=== PATIENT | female | born 1940 | race Caucasian/White ===

== ENCOUNTER 2017-08-14 01:02 | Inpatient (IN) | payer MEDICARE ==
[2017-08-14] MEDS ORDERED: Albuterol/Ipratropium NEB.SOL* Albuterol 2.5 MG/Ipratropium 0.5 MG 3 ML INH ONE (01:32)
[2017-08-14] MEDS ORDERED: methylPREDNISolone 125 MG* 2 ML VIAL IV ONE (01:32)
[2017-08-14 02:06] LABS: Hematocrit 34 % (35-47); Hemoglobin 10.5 g/dl (12.0-16.0); Mean Corpuscular HGB Conc 31 g/dl (31-36); Mean Corpuscular Hemoglobin 27 pg (27-31); Mean Corpuscular Volume 87 fL (80-97); Mean Platelet Volume 6 um3 (7.4-10.4); Red Blood Count 3.85 10^6/ul (4.0-5.4); Red Cell Distribution Width 15 % (10.5-15); White Blood Count 10.1 10^3/ul (3.5-10.8)
[2017-08-14 02:19] LABS: Albumin 3.2 g/dL (3.2-5.2); BUN/Creatinine Ratio 22.9 (8-20); Calcium 9.1 mg/dL (8.6-10.3); EGFR African American 72.5 (>60); EGFR Non-African American 56.4 (>60); Globulin 4.2 g/dL (2-4); Potassium 3.8 mmol/L (3.5-5.0); Total Bilirubin 0.2 mg/dL (0.2-1.0); Total Protein 7.4 g/dL (6.4-8.9)
[2017-08-14 02:21] LABS: Troponin I 0.01 ng/mL (<0.04)
[2017-08-14 02:48] LABS: PCO2 Arterial 66 mmHg (35-45)
[2017-08-14 02:49] LABS: FIO2 32
[2017-08-14] MEDS ORDERED: Acetaminophen TAB* 325 MG PO PRN (03:51)
[2017-08-14] MEDS ORDERED: NS 0.9% 1000 ML* 1,000 ML IV SCH (04:00)
--- NOTE | 2017-08-14 04:06 | ED ---
Michael Field Jason, scribed for Nelson Ingram on 08/14/17 at 0136 . Shortness of Breath - HPI Summary HPI Summary: This patient is a 77 year old F presenting to [facility] accompanied by son with a chief complaint of SOB since two days ago. The patients son states the patient s speech has changed to a type of slur as if shes drunk today. The patient is currently being treated for a "bacterial infection in the lungs", and started abx yesterday but has not improved. Additionally, the patient has been using oxygen at home for the past month. The patient rates the pain 0/10 in severity. Symptoms aggravated by nothing. Symptoms alleviated by nothing. - History of Current Complaint Chief Complaint: EDGeneral Time Seen by Provider: 08/14/17 01:23 Hx Obtained From: Patient Onset/Duration: Gradual Onset, Lasting Days - 2 days, Still Present Timing: Constant Aggrevating Factors: Nothing Alleviating Factors: Oxygen - Allergy/Home Medications Allergies/Adverse Reactions: Allergies Allergy/AdvReac Type Severity Reaction Status Date / Time Aspirin [ASA] Allergy See Comment Verified 08/14/17 01:22 PMH/Surg Hx/FS Hx/Imm Hx Previously Healthy: No Endocrine/Hematology History: Denies: Hx Diabetes, Hx Systemic Lupus Erythematosus Cardiovascular History: Reports: Hx Hypertension Denies: Hx Congestive Heart Failure History: Denies: Hx Dialysis, Hx Renal Disease Musculoskeletal History: Denies: Hx Rheumatoid Arthritis, Hx Osteoporosis - Cancer History Cancer Type, Location and Year: LEFT BREAST CA Hx Chemotherapy: No Hx Radiation Therapy: Yes - Aug and Sep 2015 - Surgical History Surgery Procedure, Year, and Place: BILATERAL HIP REPLACEMENTS, LUMPECTOMY - Immunization History Date of Tetanus Vaccine: utd Date of Influenza Vaccine: utd Infectious Disease History: No Infectious Disease History: Denies: Traveled Outside the [place] in Last 30 Days - Family History Known Family History: Negative: Cardiac Disease, Hypertension, Diabetes - Social History Alcohol Use: Rare Substance Use Type: Reports: None Smoking Status (MU): Former Smoker Length of Time of Smoking/Using Tobacco: 55 yrs Have You Smoked in the Last Year: Yes Review of Systems Positive: Shortness Of Breath Positive: Slurred Speech All Other Systems Reviewed And Are Negative: Yes Physical Exam - Summary Physical Exam Summary: Appearance: Well appearing, no pain distress Skin: warm, dry, reflects adequate perfusion Head/face: normal Eyes: EOMI, KYAW ENT: normal Neck: supple, non-tender Respiratory:, bilateral wheezing Cardiovascular: RRR, pulses symmetrical Abdomen: non-tender, soft Bowel: present Musculoskeletal: normal, strength/ROM intact Neuro: normal, sensory motor intact, A&Ox3 Triage Information Reviewed: Yes Vital Signs On Initial Exam: Initial Vitals Temp Pulse Resp BP Pulse Ox 97.4 F 81 14 152/80 94 08/14/17 01:05 08/14/17 01:05 08/14/17 01:05 08/14/17 01:05 08/14/17 01:05 Vital Signs Reviewed: Yes - [place] Coma Scale Coma Scale Total: 15 Diagnostics - Vital Signs Vital Signs Temp Pulse Resp BP Pulse Ox 08/14/17 01:05 97.4 F 81 14 152/80 94 - Laboratory Lab Results: Lab Results 08/14/17 08/14/17 08/14/17 Range/Units 01:46 01:46 01:46 WBC 10.1 (3.5-10.8) 10^3/ul RBC 3.85 L (4.0-5.4) 10^6/ul Hgb 10.5 L (12.0-16.0) g/dl Hct 34 L (35-47) % MCV 87 (80-97) fL MCH 27 (27-31) pg MCHC 31 (31-36) g/dl RDW 15 (10.5-15) % Plt Count 637 H (150-450) 10^3/ul MPV 6 L (7.4-10.4) um3 Neut % (Auto) 85.6 H (38-83) % Lymph % (Auto) 6.1 L (25-47) % Beauregard % (Auto) 5.9 (1-9) % Eos % (Auto) 1.7 (0-6) % Baso % (Auto) 0.7 (0-2) % Absolute Neuts (auto) 8.6 H (1.5-7.7) 10^3/ul Absolute Lymphs (auto) 0.6 L (1.0-4.8) 10^3/ul Absolute Monos (auto) 0.6 (0-0.8) 10^3/ul Absolute Eos (auto) 0.2 (0-0.6) 10^3/ul Absolute Basos (auto) 0.1 (0-0.2) 10^3/ul Absolute Nucleated RBC 0 10^3/ul Nucleated RBC % 0 INR (Anticoag Therapy) 1.32 H (0.77-1.02) APTT 38.5 H (26.0-36.3) seconds Patient Temperature ABG pH (7.35-7.45) ABG pCO2 (35-45) mmHg ABG pO2 (80-100) mmHg ABG HCO3 (19-31) mmol/L ABG O2 Saturation (95-98) % ABG Base Excess (-2.0-2.0) Respiration Rate O2 Delivery Device Ventilator Type Vent Mode FiO2 Inspiratory Time PEEP Pressure Support Pressure Control EPAP IPAP BiPAP Sodium (133-145) mmol/L Potassium (3.5-5.0) mmol/L Chloride (101-111) mmol/L Carbon Dioxide (22-32) mmol/L Anion Gap (2-11) mmol/L BUN (6-24) mg/dL Creatinine (0.51-0.95) mg/dL Est GFR ( Amer) (>60) Est GFR (Non-Af Amer) (>60) BUN/Creatinine Ratio (8-20) Glucose (70-100) mg/dL Lactic Acid (0.5-2.0) mmol/L Calcium (8.6-10.3) mg/dL Total Bilirubin (0.2-1.0) mg/dL AST (13-39) U/L ALT (7-52) U/L Alkaline Phosphatase (34-104) U/L Troponin I (<0.04) ng/mL B-Natriuretic Peptide 437 H ( - 100) pg/mL Total Protein (6.4-8.9) g/dL Albumin (3.2-5.2) g/dL Globulin (2-4) g/dL Albumin/Globulin Ratio (1-3) 08/14/17 08/14/17 08/14/17 Range/Units 01:46 01:46 02:35 WBC (3.5-10.8) 10^3/ul RBC (4.0-5.4) 10^6/ul Hgb (12.0-16.0) g/dl Hct (35-47) % MCV (80-97) fL MCH (27-31) pg MCHC (31-36) g/dl RDW (10.5-15) % Plt Count (150-450) 10^3/ul MPV (7.4-10.4) um3 Neut % (Auto) (38-83) % Lymph % (Auto) (25-47) % Beauregard % (Auto) (1-9) % Eos % (Auto) (0-6) % Baso % (Auto) (0-2) % Absolute Neuts (auto) (1.5-7.7) 10^3/ul Absolute Lymphs (auto) (1.0-4.8) 10^3/ul Absolute Monos (auto) (0-0.8) 10^3/ul Absolute Eos (auto) (0-0.6) 10^3/ul Absolute Basos (auto) (0-0.2) 10^3/ul Absolute Nucleated RBC 10^3/ul Nucleated RBC % INR (Anticoag Therapy) (0.77-1.02) APTT (26.0-36.3) seconds Patient Temperature Not Reportable ABG pH 7.38 (7.35-7.45) ABG pCO2 66 H (35-45) mmHg ABG pO2 62 L (80-100) mmHg ABG HCO3 33.9 H (19-31) mmol/L ABG O2 Saturation 93.2 L (95-98) % ABG Base Excess 11.7 H (-2.0-2.0) Respiration Rate Not Reportable O2 Delivery Device nasal cannila Ventilator Type Not Reportable Vent Mode Not Reportable FiO2 32 Inspiratory Time Not Reportable PEEP Not Reportable Pressure Support Not Reportable Pressure Control Not Reportable EPAP Not Reportable IPAP Not Reportable BiPAP Not Reportable Sodium 137 (133-145) mmol/L Potassium 3.8 (3.5-5.0) mmol/L Chloride 95 L (101-111) mmol/L Carbon Dioxide 38 H (22-32) mmol/L Anion Gap 4 (2-11) mmol/L BUN 22 (6-24) mg/dL Creatinine 0.96 H (0.51-0.95) mg/dL Est GFR ( Amer) 72.5 (>60) Est GFR (Non-Af Amer) 56.4 (>60) BUN/Creatinine Ratio 22.9 H (8-20) Glucose 133 H (70-100) mg/dL Lactic Acid 1.1 (0.5-2.0) mmol/L Calcium 9.1 (8.6-10.3) mg/dL Total Bilirubin 0.20 (0.2-1.0) mg/dL AST 11 L (13-39) U/L ALT 7 (7-52) U/L Alkaline Phosphatase 43 (34-104) U/L Troponin I 0.01 (<0.04) ng/mL B-Natriuretic Peptide ( - 100) pg/mL Total Protein 7.4 (6.4-8.9) g/dL Albumin 3.2 (3.2-5.2) g/dL Globulin 4.2 H (2-4) g/dL Albumin/Globulin Ratio 0.8 L (1-3) Result Diagrams: 08/14/17 01:46 08/14/17 01:46 Lab Statement: Any lab studies that have been ordered have been reviewed, and results considered in the medical decision making process. - Radiology CXR Radiology Interpretation Completed By: ED Physician - CXR reveals emphysema changes. ED physician has reviewed this radiology report. Course/Dx - Course Course Of Treatment: This patient is a 77 year old F presenting to [facility] accompanied by son with a chief complaint of SOB since two days ago. Bloodwork/ UA obtained. In the ED course the patient was given oxygen, albuterol and IV fluids. CXR reveals emphysema changes. We discussed patient care with Dr. Gardner and they recommended admission. The patient is agreeable with this plan. Dx of Exacerbation of COPD. - Diagnoses Provider Diagnoses: COPD exacerbation Discharge - Discharge Plan Condition: Stable Disposition: ADMITTED TO [facility] Referrals: Stu Hand, [employer] [Primary Care Provider] - The documentation as recorded by the Michael almazan Jason accurately reflects the service I personally performed and the decisions made by Nataly padgett Emmanuel.
[2017-08-14] MEDS ORDERED: AZITHROMYCIN IVPB ONE ×2 (05:00)
[2017-08-14] MEDS ORDERED: [UNRECOGNIZED DRUG - OTHER] IVPB ONE ×2 (05:00)
[2017-08-14 06:46] LABS: Urine Bacteria 1+ (Absent); Urine Bilirubin Negative (Negative); Urine Glucose Negative (Negative); Urine Nitrite Negative (Negative)
[2017-08-14] MEDS ORDERED: Albuterol 2.5 MG/3 ML NEB.SOL* (0.083%) INH SCH (07:00)
[2017-08-14] MEDS: Metoprolol Succinate XL TAB* 50 MG PO SCH (07:55)
[2017-08-14] MEDS: Atorvastatin* 10 MG TAB PO SCH (07:55)
[2017-08-14] MEDS: amLODIPine TAB* 5 MG PO SCH (07:55)
[2017-08-14] MEDS: Docusate CAP* 100 MG PO SCH ×2 (07:56→21:42)
[2017-08-14] MEDS: Rivaroxaban TAB(*) 20 MG TAB PO SCH (07:56)
--- NOTE | 2017-08-14 08:04 | HP ---
ADDENDUM NOW INCLUDED ON THIS REPORT CC: Dr. Denis; Dr. Goodson; Dr. Patel * HISTORY AND PHYSICAL: DATE OF ADMISSION: 08/14/17 PRIMARY CARE PROVIDER: Dr. Denis. CHIEF COMPLAINT: Shortness of breath. HISTORY OF PRESENT ILLNESS: Karyn Breen is a 77-year-old female with history of COPD, oxygen dependent, who was seen by Dr. Goodson on 08/12/17 and prescribed Bactrim and prednisone for upper respiratory infection and COPD exacerbation. The patient stated that despite using the medication for 24 hours she still continues to feel poorly. The patient's son brought the patient to the hospital due to patient's speech being somewhat "gurgly." The patient in fact appears very dehydrated, has a very dry mouth, and speaking appears to be problematic due to that. The patient's workup otherwise is unremarkable. She came in with a portable oxygen bottle that was empty, hypoxemic, but once she was placed on 3 L of oxygen nasal cannula her oxygen saturation was 96. Nevertheless, the patient appears very dehydrated and weak. She is going to be placed on overnight observation with a diagnosis of dehydration, COPD exacerbation. PAST MEDICAL HISTORY: 1. History of atrial fibrillation, on Xarelto. 2. History of chronic hypoxemia due to COPD, on oxygen at 2 L. 3. History of dyslipidemia. 4. History of lumbar spine scoliosis. 5. Peripheral arterial occlusive disease. 6. History of hypertension. 7. Osteoporosis. 8. 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 9. History of hip replacement, bilaterally, in 2010. 10. History of COPD which is severe with DLCO of 36%. 11. Patient's echocardiogram obtained in June 2017 showed mild concentric LVH, mild global hypokinesis of left ventricle, EF of 45%, and RV volume of pressure overload. There was mild aortic stenosis and moderate mitral regurgitation, although there is [id number] tricuspid regurgitation. CURRENT MEDICATIONS: Include: 1. Bactrim DS 1 tablet b.i.d. started on 08/13/17. 2. On oxygen 2 L continuously. 3. Xarelto 20 mg daily. 4. Metoprolol succinate 50 mg daily. 5. Amlodipine 5 mg daily. 6. Fortical 1 spray once daily alternate nostrils. 7. Nebulizer for DuoNeb treatment on a p.r.n. basis. 8. Advair Diskus 250/50 one inhalation b.i.d. 9. Lipitor 40 mg daily. 10. Tamoxifen 20 mg daily. 11. Albuterol inhaler on a p.r.n. basis. ALLERGIES: Include ASPIRIN. FAMILY HISTORY: Father with history of lung cancer. Mother with history of CVA , at the age of 91. Brother with COPD. SOCIAL HISTORY: The patient is a . Lives alone in a rented apartment. She has a history of 50-pack year smoking, quit in March 2017. She consumes alcohol rarely. Denies any drug use. Her healthcare proxy is her son, Casimiro Breen. REVIEW OF SYSTEMS: Rather limited from the patient. She complains of feeling poorly for the past month and half. She had been on multiple antibiotics. On this, in the medical records I saw that patient was on ciprofloxacin, amoxicillin, and now on Bactrim. She had been off and on tapers of steroids. The patient stated that her appetite had been poor and she had been very weak. She usually ambulates with a roller walker, but that has been problematic for her. All the remaining 12 systems were reviewed with the patient and were otherwise negative. PHYSICAL EXAMINATION GENERAL: The patient is a very pleasant 77-year-old female whose BMI is 18.9. The patient is in no acute distress. She is alert and oriented x3, but a rather poor historian. VITAL SIGNS: Blood pressure 141/93, heart rate of 80 and regular, respiratory rate of 25, oxygen saturation 100% on 3 L oxygen nasal cannula, temperature 97.4. HEENT: Head: Atraumatic, normocephalic. Eyes: Pupils are equal, reactive to light and accommodation. Oropharynx clear. Mucosa dry. NECK: Supple. No JVD, no bruits bilaterally. RESPIRATORY: Rhonchi at bilateral basis and mid lung wheezes. CARDIOVASCULAR: Regular rate and rhythm. No murmurs. ABDOMEN: Soft and nontender. Bowel sounds are present in all 4 quadrants. EXTREMITIES: There is no edema. Pulses are 2+ bilaterally. There is no clubbing or cyanosis. NEURO EVALUATION: Speech clear. Cranial nerves II through XII are grossly intact. Motor strength is 5/5 bilaterally. LABORATORY DATA: Shows white blood cell count of 10.1, hemoglobin of 10.5, hematocrit of 34, and platelets of 637. ABG shows pH of 7.38, pCO2 of 66, pO2 of 62, bicarb of 33. Sodium was 137, potassium 3.8, chloride 95, carbon dioxide 38, BUN 22, creatinine 0.96. Liver function tests were unremarkable. Brain natriuretic peptide was 437, troponin of 0.01. Lactic acid of 1.1. Portable chest x-ray reviewed by myself showed no infiltrates. The official radiologist report is still pending at the time of dictation. The patient's EKG showed AFib/flutter with a heart rate of 79 beats per minute with criteria for LVH. ASSESSMENT AND PLAN: 1. In regards to patient's chronic obstructive pulmonary disease exacerbation, the patient is going to be placed on Solu-Medrol. I also start the patient on azithromycin and continue supplementation with oxygen. The patient is also going to be placed on scheduled nebulizers. 2. In regards to patient's chronic atrial fibrillation, Xarelto is going to be continued, as well as metoprolol. 3. For her hypertension, amlodipine is going to be continued. 4. For DVT prophylaxis, the patient is going to be placed on heparin subcutaneously. 5. Code status is full and her surrogate is her son as mentioned above. TIME SEEN: Approximately 65 minutes was spent on admission of this patient, more than half the time was spent [id number] with the patient doing the interview and physical exam. ADDENDUM: Please note that the patient, in fact, does not have an allergy to aspirin, but she was told not to use aspirin when she is on Xarelto. Please also note that the patient due to being on Xarelto, the patient does not need to be on DVT prophylaxis with heparin, but she is going to be continued on Xarelto. [id number]/CPS #: [id number]/CPS #: [id number] KENAN
--- NOTE | 2017-08-14 08:04 | HP ---
HISTORY AND PHYSICAL: * ADDENDUM: Please note that the patient in fact does not have an allergy to aspirin, but she was told not to use aspirin when she is on Xarelto. Please also note that the patient due to being on Xarelto, the patient does not need to be on DVT prophylaxis with heparin, but she is going to be continued on Xarelto. [id number]/[facility] #: [id number] MTDClarisa
--- NOTE | 2017-08-14 08:10 | RAD ---
HISTORY: Shortness of breath COMPARISONS: July 08, 2017 VIEWS: 1: frontal portable view of the chest at 1:50 AM FINDINGS: LINES AND TUBES: None. CARDIOMEDIASTINAL SILHOUETTE: The cardiomediastinal silhouette is stable. PLEURA: The costophrenic angles are sharp. No pleural abnormalities are noted. LUNG PARENCHYMA: There is hyperinflation. ABDOMEN: The upper abdomen is clear. There is no subphrenic gas. BONES AND SOFT TISSUES: No bone or soft tissue abnormalities are noted. IMPRESSION: HYPERINFLATION. NO ACTIVE CARDIOPULMONARY DISEASE.
--- NOTE | 2017-08-14 08:11 | RAD ---
HISTORY: Dizziness COMPARISONS: None TECHNIQUE: Multiple contiguous axial CT scans were obtained of the head without intravenous contrast. FINDINGS: HEMORRHAGE/INFARCT: There is no hemorrhage or acute infarct. MASSES/SHIFT: There is no mass or shift. EXTRA-AXIAL SPACES: There are no extra-axial fluid collections. SULCI AND VENTRICLES: The sulci and ventricles are normal in size and position for the patient's stated age. CEREBRUM: There is hypoattenuation of the periventricular and subcortical white matter. There are chronic lacunar infarcts of the basal ganglia bilaterally. BRAINSTEM: There are no focal parenchymal abnormalities. CEREBELLUM: There are no focal parenchymal abnormalities. VESSELS: There is calcification of the cavernous segments of the internal carotid arteries bilaterally. PARANASAL SINUSES: The paranasal sinuses are clear. ORBITS: The orbits are unremarkable. BONES AND SOFT TISSUE: No bone or soft tissue abnormalities are noted. OTHER: None IMPRESSION: NO ACUTE INTRACRANIAL PATHOLOGY. CHRONIC SMALL VESSEL ISCHEMIC CHANGES.
[2017-08-14] MEDS ORDERED: Albuterol 2.5 MG/3 ML NEB.SOL* (0.083%) INH PRN ×2 (08:40→18:09)
[2017-08-14] MEDS ORDERED: Albuterol HFA INHALER* 8 gm MDI INH SCH (09:00)
[2017-08-14] MEDS: Mometasone/Formoter 200/5 MDI INH SCH ×2 (11:11→20:15)
[2017-08-14] MEDS: methylPREDNISolone SOD 40 MG* 1 ML VIAL IV SCH ×2 (11:29→17:41)
[2017-08-14] MEDS: Tamoxifen TAB* 10 MG PO SCH (16:53)
[2017-08-14] MEDS: Metoprolol Succinate XL TAB* 25 MG PO SCH (17:41)
--- NOTE | 2017-08-14 18:19 | PN ---
Subjective Date of Service: 08/14/17 Interval History: Patient seen and examined. Appears to have increased WOB and cough with significant sputum production. Denies chest pain, denies headache or dizziness. No n/v, no urinary complains. Family at bedside. Objective Active Medications: Acetaminophen (Tylenol Tab*) 650 mg PO Q4H PRN PRN Reason: FEVER/PAIN Albuterol (Ventolin 2.5 Mg/3 Ml Neb.Edwina*) 2.5 mg INH Q4H PRN PRN Reason: SOB/WHEEZING Albuterol/Ipratropium (Duoneb (Albuterol 2.5 Mg/Ipratropium 0.5 Mg)) 1 neb INH Q6H FRANCI Amlodipine Besylate (Norvasc Tab*) 5 mg PO DAILY [facility] Last Admin: 08/14/17 07:55 Dose: 5 mg Atorvastatin Calcium (Lipitor*) 10 mg PO DAILY [facility] Last Admin: 08/14/17 07:55 Dose: 10 mg Docusate Sodium (Colace Cap*) 100 mg PO BID [facility] Last Admin: 08/14/17 07:56 Dose: Not Given Guaifenesin (Mucinex*) 600 mg PO BID [facility] Azithromycin 500 mg/ Sodium (Chloride) 250 mls @ 250 mls/hr IVPB Q24H [facility] Methylprednisolone Sodium Succinate (Solu-Medrol 40 Mg) 40 mg IV Q8H [facility] Last Admin: 08/14/17 17:41 Dose: 40 mg Metoprolol Succinate (Toprol Xl Tab*) 25 mg PO QPM [facility] Last Admin: 08/14/17 17:41 Dose: 25 mg Metoprolol Succinate (Toprol Xl Tab*) 50 mg PO QAM [facility] Last Admin: 08/14/17 07:55 Dose: 50 mg Mometasone Furoate/Formoterol Fumar (Dulera 200/5 Mdi*) 2 puff INH BID [facility] Last Admin: 08/14/17 11:11 Dose: Not Given Rivaroxaban (Xarelto (*)) 20 mg PO DAILY [facility] Last Admin: 08/14/17 07:56 Dose: 20 mg Tamoxifen Citrate (Nolvadex*) 20 mg PO DAILY [facility] Last Admin: 08/14/17 16:53 Dose: Not Given Vital Signs - 8 hr 08/14/17 15:37 Temperature 98.2 F Pulse Rate 84 Respiratory 26 Rate Blood Pressure 130/70 (mmHg) O2 Sat by Pulse 90 Oximetry Oxygen Devices in Use Now: Nasal Cannula Appearance: Labored, mild distress Eyes: No Scleral Icterus, PERRLA Ears/Nose/Mouth/Throat: NL Teeth, Lips, Gums, Mucous Membranes Moist Neck: Trachea Midline Respiratory: - - Increased accessory muscle use, rhonchorous, expiratory wheeze bilaterally Cardiovascular: RRR - grade II/ murmur, No Edema Abdominal: NL Sounds; No Tenderness; No Distention Extremities: No Edema, No Clubbing, Cyanosis Skin: No Rash or Ulcers Neurological: Alert and Oriented x 3, NL Sensation Nutrition: Taking PO's Result Diagrams: 08/14/17 01:46 08/14/17 01:46 Additional Lab and Data: Lab Results 08/14/17 08/14/17 08/14/17 Range/Units 01:46 01:46 01:46 WBC 10.1 (3.5-10.8) 10^3/ul RBC 3.85 L (4.0-5.4) 10^6/ul Hgb 10.5 L (12.0-16.0) g/dl Hct 34 L (35-47) % MCV 87 (80-97) fL MCH 27 (27-31) pg MCHC 31 (31-36) g/dl RDW 15 (10.5-15) % Plt Count 637 H (150-450) 10^3/ul MPV 6 L (7.4-10.4) um3 Neut % (Auto) 85.6 H (38-83) % Lymph % (Auto) 6.1 L (25-47) % Ashley % (Auto) 5.9 (1-9) % Eos % (Auto) 1.7 (0-6) % Baso % (Auto) 0.7 (0-2) % Absolute Neuts (auto) 8.6 H (1.5-7.7) 10^3/ul Absolute Lymphs (auto) 0.6 L (1.0-4.8) 10^3/ul Absolute Monos (auto) 0.6 (0-0.8) 10^3/ul Absolute Eos (auto) 0.2 (0-0.6) 10^3/ul Absolute Basos (auto) 0.1 (0-0.2) 10^3/ul Absolute Nucleated RBC 0 10^3/ul Nucleated RBC % 0 INR (Anticoag Therapy) 1.32 H (0.77-1.02) APTT 38.5 H (26.0-36.3) seconds Patient Temperature ABG pH (7.35-7.45) ABG pCO2 (35-45) mmHg ABG pO2 (80-100) mmHg ABG HCO3 (19-31) mmol/L ABG O2 Saturation (95-98) % ABG Base Excess (-2.0-2.0) Respiration Rate O2 Delivery Device Ventilator Type Vent Mode FiO2 Inspiratory Time PEEP Pressure Support Pressure Control EPAP IPAP BiPAP Sodium (133-145) mmol/L Potassium (3.5-5.0) mmol/L Chloride (101-111) mmol/L Carbon Dioxide (22-32) mmol/L Anion Gap (2-11) mmol/L BUN (6-24) mg/dL Creatinine (0.51-0.95) mg/dL Est GFR ( Amer) (>60) Est GFR (Non-Af Amer) (>60) BUN/Creatinine Ratio (8-20) Glucose (70-100) mg/dL Lactic Acid (0.5-2.0) mmol/L Calcium (8.6-10.3) mg/dL Total Bilirubin (0.2-1.0) mg/dL AST (13-39) U/L ALT (7-52) U/L Alkaline Phosphatase (34-104) U/L Troponin I (<0.04) ng/mL B-Natriuretic Peptide 437 H ( - 100) pg/mL Total Protein (6.4-8.9) g/dL Albumin (3.2-5.2) g/dL Globulin (2-4) g/dL Albumin/Globulin Ratio (1-3) 08/14/17 08/14/17 08/14/17 Range/Units 01:46 01:46 02:35 WBC (3.5-10.8) 10^3/ul RBC (4.0-5.4) 10^6/ul Hgb (12.0-16.0) g/dl Hct (35-47) % MCV (80-97) fL MCH (27-31) pg MCHC (31-36) g/dl RDW (10.5-15) % Plt Count (150-450) 10^3/ul MPV (7.4-10.4) um3 Neut % (Auto) (38-83) % Lymph % (Auto) (25-47) % Ashley % (Auto) (1-9) % Eos % (Auto) (0-6) % Baso % (Auto) (0-2) % Absolute Neuts (auto) (1.5-7.7) 10^3/ul Absolute Lymphs (auto) (1.0-4.8) 10^3/ul Absolute Monos (auto) (0-0.8) 10^3/ul Absolute Eos (auto) (0-0.6) 10^3/ul Absolute Basos (auto) (0-0.2) 10^3/ul Absolute Nucleated RBC 10^3/ul Nucleated RBC % INR (Anticoag Therapy) (0.77-1.02) APTT (26.0-36.3) seconds Patient Temperature Not Reportable ABG pH 7.38 (7.35-7.45) ABG pCO2 66 H (35-45) mmHg ABG pO2 62 L (80-100) mmHg ABG HCO3 33.9 H (19-31) mmol/L ABG O2 Saturation 93.2 L (95-98) % ABG Base Excess 11.7 H (-2.0-2.0) Respiration Rate Not Reportable O2 Delivery Device nasal cannila Ventilator Type Not Reportable Vent Mode Not Reportable FiO2 32 Inspiratory Time Not Reportable PEEP Not Reportable Pressure Support Not Reportable Pressure Control Not Reportable EPAP Not Reportable IPAP Not Reportable BiPAP Not Reportable Sodium 137 (133-145) mmol/L Potassium 3.8 (3.5-5.0) mmol/L Chloride 95 L (101-111) mmol/L Carbon Dioxide 38 H (22-32) mmol/L Anion Gap 4 (2-11) mmol/L BUN 22 (6-24) mg/dL Creatinine 0.96 H (0.51-0.95) mg/dL Est GFR ( Amer) 72.5 (>60) Est GFR (Non-Af Amer) 56.4 (>60) BUN/Creatinine Ratio 22.9 H (8-20) Glucose 133 H (70-100) mg/dL Lactic Acid 1.1 (0.5-2.0) mmol/L Calcium 9.1 (8.6-10.3) mg/dL Total Bilirubin 0.20 (0.2-1.0) mg/dL AST 11 L (13-39) U/L ALT 7 (7-52) U/L Alkaline Phosphatase 43 (34-104) U/L Troponin I 0.01 (<0.04) ng/mL B-Natriuretic Peptide ( - 100) pg/mL Total Protein 7.4 (6.4-8.9) g/dL Albumin 3.2 (3.2-5.2) g/dL Globulin 4.2 H (2-4) g/dL Albumin/Globulin Ratio 0.8 L (1-3) Diagnostic Imaging: MRI brain with no acute pathology CXR with no infiltrate, shows emphysematous changes Assess/Plan/Problems-Billing Assessment: This is a 77 year old female patient with 4 year hx of COPD in an acute exacerbation requiring inpatient IV steroids, antibiotics and nebulizer treatment. - Patient Problems (1) COPD exacerbation Code(s): J44.1 - CHRONIC OBSTRUCTIVE PULMONARY DISEASE W (ACUTE) EXACERBATION SNOMED Code(s): 099201008804816 Comment: - Continue azythromycin 500 daily - Change to duonebs Q6H with albuterol Q4PRN - Add mucinex 600 BID - Continue solumedrol 40mg Q8h for now - Continue O2 2LPM - Will consult Dr. Goodson in the AM, as she sees her as an outpatient (2) Hypertension Code(s): I10 - ESSENTIAL (PRIMARY) HYPERTENSION SNOMED Code(s): 13266171 Comment: - Continue amlodipine and toprol (3) Breast cancer Code(s): C50.919 - MALIGNANT NEOPLASM OF UNSP SITE OF UNSPECIFIED FEMALE BREAST SNOMED Code(s): 686316378 Comment: - status post lumpectomy on tamoxifan (4) Paroxysmal A-fib Code(s): I48.0 - PAROXYSMAL ATRIAL FIBRILLATION SNOMED Code(s): 512941887 Comment: - Continue xarelto and toprol XL (5) Hyperlipidemia Code(s): E78.5 - HYPERLIPIDEMIA, UNSPECIFIED SNOMED Code(s): 95858740 Comment: - Continue statin Status and Disposition: Remain inpatient for stabilization. Counseling and/or Coordination of Care Minutes: Coordinated with patient, family and primary RN.
[2017-08-14] MEDS: Albuterol/Ipratropium NEB.SOL* Albuterol 2.5 MG/Ipratropium 0.5 MG 3 ML INH SCH (20:18)
[2017-08-14] MEDS: guaiFENesin ER TAB 600 MG PO SCH (21:42)
[2017-08-15] MEDS: Albuterol/Ipratropium NEB.SOL* Albuterol 2.5 MG/Ipratropium 0.5 MG 3 ML INH SCH ×4 (01:15→21:22)
[2017-08-15] MEDS: methylPREDNISolone SOD 40 MG* 1 ML VIAL IV SCH ×3 (02:36→18:35)
[2017-08-15] MEDS: Azithromycin IV(*) 500 MG in NS 0.9% 250 ML* 250 ML IVPB SCH (04:34)
[2017-08-15] MEDS: amLODIPine TAB* 5 MG PO SCH (07:37)
[2017-08-15] MEDS: Atorvastatin* 10 MG TAB PO SCH (07:37)
[2017-08-15] MEDS: guaiFENesin ER TAB 600 MG PO SCH ×2 (07:37→22:08)
[2017-08-15] MEDS: Rivaroxaban TAB(*) 20 MG TAB PO SCH (07:37)
[2017-08-15] MEDS: Metoprolol Succinate XL TAB* 50 MG PO SCH (07:37)
[2017-08-15] MEDS: Tamoxifen TAB* 10 MG PO SCH (07:37)
[2017-08-15] MEDS: Docusate CAP* 100 MG PO SCH ×4 (07:37→22:10)
[2017-08-15 07:39] LABS: Calcium 8.8 mg/dL (8.6-10.3); EGFR African American 93.5 (>60); EGFR Non-African American 72.7 (>60)
[2017-08-15 07:44] LABS: Hematocrit 33 % (35-47); Hemoglobin 10.2 g/dl (12.0-16.0); Mean Corpuscular HGB Conc 31 g/dl (31-36); Mean Corpuscular Hemoglobin 27 pg (27-31); Mean Corpuscular Volume 86 fL (80-97); Mean Platelet Volume 7 um3 (7.4-10.4); Red Blood Count 3.82 10^6/ul (4.0-5.4); Red Cell Distribution Width 15 % (10.5-15); White Blood Count 15.1 10^3/ul (3.5-10.8)
[2017-08-15] MEDS: Mometasone/Formoter 200/5 MDI INH SCH ×2 (07:57→21:19)
[2017-08-15] MEDS: Metoprolol Succinate XL TAB* 25 MG PO SCH (18:35)
--- NOTE | 2017-08-15 19:15 | PN ---
Subjective Date of Service: 08/15/17 Interval History: Patient seen and examined. Breathing with some improvement, still SOB with ambulation. Still with cough and sputum production. No chest pain, no dizziness. No further complaints. Objective Active Medications: Acetaminophen (Tylenol Tab*) 650 mg PO Q4H PRN PRN Reason: FEVER/PAIN Albuterol (Ventolin 2.5 Mg/3 Ml Neb.Edwina*) 2.5 mg INH Q4H PRN PRN Reason: SOB/WHEEZING Albuterol/Ipratropium (Duoneb (Albuterol 2.5 Mg/Ipratropium 0.5 Mg)) 1 neb INH Q6H [facility] Last Admin: 08/15/17 13:38 Dose: 1 neb Amlodipine Besylate (Norvasc Tab*) 5 mg PO DAILY [facility] Last Admin: 08/15/17 07:37 Dose: 5 mg Atorvastatin Calcium (Lipitor*) 10 mg PO DAILY [facility] Last Admin: 08/15/17 07:37 Dose: 10 mg Docusate Sodium (Colace Cap*) 100 mg PO BID [facility] Last Admin: 08/15/17 07:40 Dose: Not Given Guaifenesin (Mucinex*) 600 mg PO BID [facility] Last Admin: 08/15/17 07:37 Dose: 600 mg Azithromycin 500 mg/ Sodium (Chloride) 250 mls @ 250 mls/hr IVPB Q24H [facility] Last Admin: 08/15/17 04:34 Dose: 250 mls/hr Ceftriaxone Sodium 1 gm/ (Sodium Chloride) 50 mls @ 200 mls/hr IVPB Q24H [facility] Stop: 08/17/17 21:00 Methylprednisolone Sodium Succinate (Solu-Medrol 40 Mg) 40 mg IV Q8H [facility] Last Admin: 08/15/17 18:35 Dose: 40 mg Metoprolol Succinate (Toprol Xl Tab*) 25 mg PO QPM [facility] Last Admin: 08/15/17 18:35 Dose: 25 mg Metoprolol Succinate (Toprol Xl Tab*) 50 mg PO QAM [facility] Last Admin: 08/15/17 07:37 Dose: 50 mg Mometasone Furoate/Formoterol Fumar (Dulera 200/5 Mdi*) 2 puff INH BID [facility] Last Admin: 08/15/17 07:57 Dose: 2 puff Rivaroxaban (Xarelto (*)) 20 mg PO DAILY [facility] Last Admin: 08/15/17 07:37 Dose: 20 mg Tamoxifen Citrate (Nolvadex*) 20 mg PO DAILY [facility] Last Admin: 08/15/17 07:37 Dose: 20 mg Vital Signs - 8 hr 08/15/17 08/15/17 08/15/17 11:14 13:40 15:34 Temperature 97.4 F 98.0 F Pulse Rate 78 99 90 Respiratory 20 32 16 Rate Blood Pressure 108/61 118/70 (mmHg) O2 Sat by Pulse 100 93 93 Oximetry Oxygen Devices in Use Now: Nasal Cannula Appearance: Alert, NAD Eyes: No Scleral Icterus, PERRLA Ears/Nose/Mouth/Throat: NL Teeth, Lips, Gums, Mucous Membranes Moist Neck: NL Appearance and Movements; NL JVP, Trachea Midline Respiratory: - - Decreased WOB compared to yesterday, remains course throughout with expiratory wheeze Cardiovascular: No Edema, - - Irregular with grade I/ murmur Abdominal: NL Sounds; No Tenderness; No Distention Skin: No Rash or Ulcers Neurological: Alert and Oriented x 3, NL Sensation, NL Muscle Strength and Tone Result Diagrams: 08/15/17 07:13 08/15/17 07:13 Additional Lab and Data: Lab Results 08/14/17 08/14/17 08/14/17 Range/Units 01:46 01:46 01:46 WBC 10.1 (3.5-10.8) 10^3/ul RBC 3.85 L (4.0-5.4) 10^6/ul Hgb 10.5 L (12.0-16.0) g/dl Hct 34 L (35-47) % MCV 87 (80-97) fL MCH 27 (27-31) pg MCHC 31 (31-36) g/dl RDW 15 (10.5-15) % Plt Count 637 H (150-450) 10^3/ul MPV 6 L (7.4-10.4) um3 Neut % (Auto) 85.6 H (38-83) % Lymph % (Auto) 6.1 L (25-47) % [place] % (Auto) 5.9 (1-9) % Eos % (Auto) 1.7 (0-6) % Baso % (Auto) 0.7 (0-2) % Absolute Neuts (auto) 8.6 H (1.5-7.7) 10^3/ul Absolute Lymphs (auto) 0.6 L (1.0-4.8) 10^3/ul Absolute Monos (auto) 0.6 (0-0.8) 10^3/ul Absolute Eos (auto) 0.2 (0-0.6) 10^3/ul Absolute Basos (auto) 0.1 (0-0.2) 10^3/ul Absolute Nucleated RBC 0 10^3/ul Nucleated RBC % 0 INR (Anticoag Therapy) 1.32 H (0.77-1.02) APTT 38.5 H (26.0-36.3) seconds Patient Temperature ABG pH (7.35-7.45) ABG pCO2 (35-45) mmHg ABG pO2 (80-100) mmHg ABG HCO3 (19-31) mmol/L ABG O2 Saturation (95-98) % ABG Base Excess (-2.0-2.0) Respiration Rate O2 Delivery Device Ventilator Type Vent Mode FiO2 Inspiratory Time PEEP Pressure Support Pressure Control EPAP IPAP BiPAP Sodium (133-145) mmol/L Potassium (3.5-5.0) mmol/L Chloride (101-111) mmol/L Carbon Dioxide (22-32) mmol/L Anion Gap (2-11) mmol/L BUN (6-24) mg/dL Creatinine (0.51-0.95) mg/dL Est GFR ( Amer) (>60) Est GFR (Non-Af Amer) (>60) BUN/Creatinine Ratio (8-20) Glucose (70-100) mg/dL Lactic Acid (0.5-2.0) mmol/L Calcium (8.6-10.3) mg/dL Total Bilirubin (0.2-1.0) mg/dL AST (13-39) U/L ALT (7-52) U/L Alkaline Phosphatase (34-104) U/L Troponin I (<0.04) ng/mL B-Natriuretic Peptide 437 H ( - 100) pg/mL Total Protein (6.4-8.9) g/dL Albumin (3.2-5.2) g/dL Globulin (2-4) g/dL Albumin/Globulin Ratio (1-3) 08/14/17 08/14/17 08/14/17 Range/Units 01:46 01:46 02:35 WBC (3.5-10.8) 10^3/ul RBC (4.0-5.4) 10^6/ul Hgb (12.0-16.0) g/dl Hct (35-47) % MCV (80-97) fL MCH (27-31) pg MCHC (31-36) g/dl RDW (10.5-15) % Plt Count (150-450) 10^3/ul MPV (7.4-10.4) um3 Neut % (Auto) (38-83) % Lymph % (Auto) (25-47) % [place] % (Auto) (1-9) % Eos % (Auto) (0-6) % Baso % (Auto) (0-2) % Absolute Neuts (auto) (1.5-7.7) 10^3/ul Absolute Lymphs (auto) (1.0-4.8) 10^3/ul Absolute Monos (auto) (0-0.8) 10^3/ul Absolute Eos (auto) (0-0.6) 10^3/ul Absolute Basos (auto) (0-0.2) 10^3/ul Absolute Nucleated RBC 10^3/ul Nucleated RBC % INR (Anticoag Therapy) (0.77-1.02) APTT (26.0-36.3) seconds Patient Temperature Not Reportable ABG pH 7.38 (7.35-7.45) ABG pCO2 66 H (35-45) mmHg ABG pO2 62 L (80-100) mmHg ABG HCO3 33.9 H (19-31) mmol/L ABG O2 Saturation 93.2 L (95-98) % ABG Base Excess 11.7 H (-2.0-2.0) Respiration Rate Not Reportable O2 Delivery Device nasal cannila Ventilator Type Not Reportable Vent Mode Not Reportable FiO2 32 Inspiratory Time Not Reportable PEEP Not Reportable Pressure Support Not Reportable Pressure Control Not Reportable EPAP Not Reportable IPAP Not Reportable BiPAP Not Reportable Sodium 137 (133-145) mmol/L Potassium 3.8 (3.5-5.0) mmol/L Chloride 95 L (101-111) mmol/L Carbon Dioxide 38 H (22-32) mmol/L Anion Gap 4 (2-11) mmol/L BUN 22 (6-24) mg/dL Creatinine 0.96 H (0.51-0.95) mg/dL Est GFR ( Amer) 72.5 (>60) Est GFR (Non-Af Amer) 56.4 (>60) BUN/Creatinine Ratio 22.9 H (8-20) Glucose 133 H (70-100) mg/dL Lactic Acid 1.1 (0.5-2.0) mmol/L Calcium 9.1 (8.6-10.3) mg/dL Total Bilirubin 0.20 (0.2-1.0) mg/dL AST 11 L (13-39) U/L ALT 7 (7-52) U/L Alkaline Phosphatase 43 (34-104) U/L Troponin I 0.01 (<0.04) ng/mL B-Natriuretic Peptide ( - 100) pg/mL Total Protein 7.4 (6.4-8.9) g/dL Albumin 3.2 (3.2-5.2) g/dL Globulin 4.2 H (2-4) g/dL Albumin/Globulin Ratio 0.8 L (1-3) Microbiology and Other Data: Microbiology 08/14/17 05:34 Urine Culture - Preliminary Urine Klebsiella Pneumoniae Diagnostic Imaging: MRI brain with no acute pathology CXR with no infiltrate, shows emphysematous changes Assess/Plan/Problems-Billing Assessment: This is a 77 year old female patient with 4 year hx of COPD in an acute exacerbation requiring inpatient IV steroids, antibiotics and nebulizer treatment. - Patient Problems (1) COPD exacerbation Code(s): J44.1 - CHRONIC OBSTRUCTIVE PULMONARY DISEASE W (ACUTE) EXACERBATION SNOMED Code(s): 934075254056289 Comment: - Continue azythromycin 500 daily - Change to duonebs Q6H with albuterol Q4PRN - Add mucinex 600 BID - Continue solumedrol 40mg Q8h for now - Continue O2 2LPM - Moderate improvement today, will hold off on pulmonology and call Dr. Goodson tomorrow. (2) Hypertension Code(s): I10 - ESSENTIAL (PRIMARY) HYPERTENSION SNOMED Code(s): 03872668 Comment: - Continue amlodipine and toprol (3) Breast cancer Code(s): C50.919 - MALIGNANT NEOPLASM OF UNSP SITE OF UNSPECIFIED FEMALE BREAST SNOMED Code(s): 565708284 Comment: - status post lumpectomy on tamoxifan (4) Paroxysmal A-fib Code(s): I48.0 - PAROXYSMAL ATRIAL FIBRILLATION SNOMED Code(s): 156925864 Comment: - Continue xarelto and toprol XL - Rate controlled, stable (5) Hyperlipidemia Code(s): E78.5 - HYPERLIPIDEMIA, UNSPECIFIED SNOMED Code(s): 03037674 Comment: - Continue statin (6) Urinary tract infection due to Klebsiella species Code(s): N39.0 - URINARY TRACT INFECTION, SITE NOT SPECIFIED; B96.1 - KLEBSIELLA PNEUMONIAE THE CAUSE OF DISEASES CLASSD ELSWHR SNOMED Code(s): 186605955206832 Comment: - start Rocephin 1gm Q24h Status and Disposition: Remain inpatient for stabilization. Counseling and/or Coordination of Care Minutes: Coordinated with patient and staff. time sepnt >45mins
[2017-08-15] MEDS ORDERED: cefTRIAXone(*) 1 GM in D5W 50 ML BAG* 50 ML IVPB SCH (20:00)
[2017-08-16] MEDS: Albuterol/Ipratropium NEB.SOL* Albuterol 2.5 MG/Ipratropium 0.5 MG 3 ML INH SCH ×4 (01:33→18:14)
[2017-08-16] MEDS: methylPREDNISolone SOD 40 MG* 1 ML VIAL IV SCH ×2 (02:11→11:25)
[2017-08-16] MEDS: Azithromycin IV(*) 500 MG in NS 0.9% 250 ML* 250 ML IVPB SCH (03:07)
[2017-08-16] MEDS: Mometasone/Formoter 200/5 MDI INH SCH ×2 (07:58→20:53)
[2017-08-16] MEDS: Atorvastatin* 10 MG TAB PO SCH (09:15)
[2017-08-16] MEDS: Docusate CAP* 100 MG PO SCH ×2 (09:15→20:45)
[2017-08-16] MEDS: amLODIPine TAB* 5 MG PO SCH (09:15)
[2017-08-16] MEDS: guaiFENesin ER TAB 600 MG PO SCH ×2 (09:15→20:46)
[2017-08-16] MEDS: Metoprolol Succinate XL TAB* 50 MG PO SCH (09:15)
[2017-08-16] MEDS: Tamoxifen TAB* 10 MG PO SCH (09:16)
[2017-08-16] MEDS: Rivaroxaban TAB(*) 20 MG TAB PO SCH (09:16)
[2017-08-16] MEDS ORDERED: cefTRIAXone(*) 1 GM in NS 0.9% 50 ML* 50 ML IVPB SCH ×2 (12:37→20:00)
--- NOTE | 2017-08-16 15:56 | PN ---
Subjective Date of Service: 08/16/17 Interval History: Patient seen and examined, feels better, breathing improved. States no SOB with exertion now. Denies chest pain, no n/v, no urinary complaints other than frequency, no headache, weakness or dizziness. Objective Active Medications: Acetaminophen (Tylenol Tab*) 650 mg PO Q4H PRN PRN Reason: FEVER/PAIN Albuterol (Ventolin 2.5 Mg/3 Ml Neb.Edwina*) 2.5 mg INH Q4H PRN PRN Reason: SOB/WHEEZING Albuterol/Ipratropium (Duoneb (Albuterol 2.5 Mg/Ipratropium 0.5 Mg)) 1 neb INH Q6H [facility] Last Admin: 08/16/17 13:53 Dose: 1 neb Amlodipine Besylate (Norvasc Tab*) 5 mg PO DAILY [facility] Last Admin: 08/16/17 09:15 Dose: 5 mg Atorvastatin Calcium (Lipitor*) 10 mg PO DAILY [facility] Last Admin: 08/16/17 09:15 Dose: 10 mg Docusate Sodium (Colace Cap*) 100 mg PO BID [facility] Last Admin: 08/16/17 09:15 Dose: 100 mg Guaifenesin (Mucinex*) 600 mg PO BID [facility] Last Admin: 08/16/17 09:15 Dose: 600 mg Azithromycin 500 mg/ Sodium (Chloride) 250 mls @ 250 mls/hr IVPB Q24H [facility] Last Admin: 08/16/17 03:07 Dose: 250 mls/hr Ceftriaxone Sodium 1 gm/ (Sodium Chloride) 50 mls @ 200 mls/hr IVPB Q24H [facility] Stop: 08/17/17 21:00 Methylprednisolone Sodium Succinate (Solu-Medrol 40 Mg) 40 mg IV Q8H [facility] Last Admin: 08/16/17 11:25 Dose: 40 mg Metoprolol Succinate (Toprol Xl Tab*) 25 mg PO QPM [facility] Last Admin: 08/15/17 18:35 Dose: 25 mg Metoprolol Succinate (Toprol Xl Tab*) 50 mg PO QAM [facility] Last Admin: 08/16/17 09:15 Dose: 50 mg Mometasone Furoate/Formoterol Fumar (Dulera 200/5 Mdi*) 2 puff INH BID [facility] Last Admin: 08/16/17 07:58 Dose: 2 puff Rivaroxaban (Xarelto (*)) 20 mg PO DAILY [facility] Last Admin: 08/16/17 09:16 Dose: 20 mg Tamoxifen Citrate (Nolvadex*) 20 mg PO DAILY [facility] Last Admin: 08/16/17 09:16 Dose: 20 mg Vital Signs - 8 hr 08/16/17 08/16/17 08/16/17 08:00 13:53 15:25 Temperature 97.7 F Pulse Rate 78 85 96 Respiratory 20 20 27 Rate Blood Pressure 118/76 (mmHg) O2 Sat by Pulse 99 98 98 Oximetry Oxygen Devices in Use Now: Nasal Cannula Eyes: No Scleral Icterus, PERRLA Ears/Nose/Mouth/Throat: NL Teeth, Lips, Gums, Mucous Membranes Moist Neck: NL Appearance and Movements; NL JVP, Trachea Midline Respiratory: Symmetrical Chest Expansion and Respiratory Effort, - - diminished bases with productive cough, scattered wheeze Cardiovascular: NL Sounds; No Murmurs; No JVD - irregular Abdominal: NL Sounds; No Tenderness; No Distention Extremities: No Edema, No Clubbing, Cyanosis Skin: No Rash or Ulcers Neurological: Alert and Oriented x 3, NL Sensation, NL Gait Nutrition: Taking PO's Result Diagrams: 08/15/17 07:13 08/15/17 07:13 Additional Lab and Data: Lab Results 08/14/17 08/14/17 08/14/17 Range/Units 01:46 01:46 01:46 WBC 10.1 (3.5-10.8) 10^3/ul RBC 3.85 L (4.0-5.4) 10^6/ul Hgb 10.5 L (12.0-16.0) g/dl Hct 34 L (35-47) % MCV 87 (80-97) fL MCH 27 (27-31) pg MCHC 31 (31-36) g/dl RDW 15 (10.5-15) % Plt Count 637 H (150-450) 10^3/ul MPV 6 L (7.4-10.4) um3 Neut % (Auto) 85.6 H (38-83) % Lymph % (Auto) 6.1 L (25-47) % [place] % (Auto) 5.9 (1-9) % Eos % (Auto) 1.7 (0-6) % Baso % (Auto) 0.7 (0-2) % Absolute Neuts (auto) 8.6 H (1.5-7.7) 10^3/ul Absolute Lymphs (auto) 0.6 L (1.0-4.8) 10^3/ul Absolute Monos (auto) 0.6 (0-0.8) 10^3/ul Absolute Eos (auto) 0.2 (0-0.6) 10^3/ul Absolute Basos (auto) 0.1 (0-0.2) 10^3/ul Absolute Nucleated RBC 0 10^3/ul Nucleated RBC % 0 INR (Anticoag Therapy) 1.32 H (0.77-1.02) APTT 38.5 H (26.0-36.3) seconds Patient Temperature ABG pH (7.35-7.45) ABG pCO2 (35-45) mmHg ABG pO2 (80-100) mmHg ABG HCO3 (19-31) mmol/L ABG O2 Saturation (95-98) % ABG Base Excess (-2.0-2.0) Respiration Rate O2 Delivery Device Ventilator Type Vent Mode FiO2 Inspiratory Time PEEP Pressure Support Pressure Control EPAP IPAP BiPAP Sodium (133-145) mmol/L Potassium (3.5-5.0) mmol/L Chloride (101-111) mmol/L Carbon Dioxide (22-32) mmol/L Anion Gap (2-11) mmol/L BUN (6-24) mg/dL Creatinine (0.51-0.95) mg/dL Est GFR ( Amer) (>60) Est GFR (Non-Af Amer) (>60) BUN/Creatinine Ratio (8-20) Glucose (70-100) mg/dL Lactic Acid (0.5-2.0) mmol/L Calcium (8.6-10.3) mg/dL Total Bilirubin (0.2-1.0) mg/dL AST (13-39) U/L ALT (7-52) U/L Alkaline Phosphatase (34-104) U/L Troponin I (<0.04) ng/mL B-Natriuretic Peptide 437 H ( - 100) pg/mL Total Protein (6.4-8.9) g/dL Albumin (3.2-5.2) g/dL Globulin (2-4) g/dL Albumin/Globulin Ratio (1-3) 08/14/17 08/14/17 08/14/17 Range/Units 01:46 01:46 02:35 WBC (3.5-10.8) 10^3/ul RBC (4.0-5.4) 10^6/ul Hgb (12.0-16.0) g/dl Hct (35-47) % MCV (80-97) fL MCH (27-31) pg MCHC (31-36) g/dl RDW (10.5-15) % Plt Count (150-450) 10^3/ul MPV (7.4-10.4) um3 Neut % (Auto) (38-83) % Lymph % (Auto) (25-47) % [place] % (Auto) (1-9) % Eos % (Auto) (0-6) % Baso % (Auto) (0-2) % Absolute Neuts (auto) (1.5-7.7) 10^3/ul Absolute Lymphs (auto) (1.0-4.8) 10^3/ul Absolute Monos (auto) (0-0.8) 10^3/ul Absolute Eos (auto) (0-0.6) 10^3/ul Absolute Basos (auto) (0-0.2) 10^3/ul Absolute Nucleated RBC 10^3/ul Nucleated RBC % INR (Anticoag Therapy) (0.77-1.02) APTT (26.0-36.3) seconds Patient Temperature Not Reportable ABG pH 7.38 (7.35-7.45) ABG pCO2 66 H (35-45) mmHg ABG pO2 62 L (80-100) mmHg ABG HCO3 33.9 H (19-31) mmol/L ABG O2 Saturation 93.2 L (95-98) % ABG Base Excess 11.7 H (-2.0-2.0) Respiration Rate Not Reportable O2 Delivery Device nasal cannila Ventilator Type Not Reportable Vent Mode Not Reportable FiO2 32 Inspiratory Time Not Reportable PEEP Not Reportable Pressure Support Not Reportable Pressure Control Not Reportable EPAP Not Reportable IPAP Not Reportable BiPAP Not Reportable Sodium 137 (133-145) mmol/L Potassium 3.8 (3.5-5.0) mmol/L Chloride 95 L (101-111) mmol/L Carbon Dioxide 38 H (22-32) mmol/L Anion Gap 4 (2-11) mmol/L BUN 22 (6-24) mg/dL Creatinine 0.96 H (0.51-0.95) mg/dL Est GFR ( Amer) 72.5 (>60) Est GFR (Non-Af Amer) 56.4 (>60) BUN/Creatinine Ratio 22.9 H (8-20) Glucose 133 H (70-100) mg/dL Lactic Acid 1.1 (0.5-2.0) mmol/L Calcium 9.1 (8.6-10.3) mg/dL Total Bilirubin 0.20 (0.2-1.0) mg/dL AST 11 L (13-39) U/L ALT 7 (7-52) U/L Alkaline Phosphatase 43 (34-104) U/L Troponin I 0.01 (<0.04) ng/mL B-Natriuretic Peptide ( - 100) pg/mL Total Protein 7.4 (6.4-8.9) g/dL Albumin 3.2 (3.2-5.2) g/dL Globulin 4.2 H (2-4) g/dL Albumin/Globulin Ratio 0.8 L (1-3) Microbiology and Other Data: Microbiology 08/14/17 05:34 Urine Culture - Preliminary Urine Klebsiella Pneumoniae Diagnostic Imaging: MRI brain with no acute pathology CXR with no infiltrate, shows emphysematous changes Assess/Plan/Problems-Billing Assessment: This is a 77 year old female patient with 4 year hx of COPD in an acute exacerbation requiring inpatient IV steroids, antibiotics and nebulizer treatment, also with positive culture for klebsiella in the urine. - Patient Problems (1) COPD exacerbation Code(s): J44.1 - CHRONIC OBSTRUCTIVE PULMONARY DISEASE W (ACUTE) EXACERBATION SNOMED Code(s): 965068335509297 Comment: - Continue azythromycin 500 daily - Change to duonebs Q6H with albuterol Q4PRN - Add mucinex 600 BID - Change to oral prednisone today - Discussed with Dr. Goodson (sees outpatient), who will see patient today - Continue O2 2LPM - Moderate improvement today, will hold off on pulmonology and call Dr. Goodson tomorrow. (2) Hypertension Code(s): I10 - ESSENTIAL (PRIMARY) HYPERTENSION SNOMED Code(s): 39534151 Comment: - Continue amlodipine and toprol, BP stable (3) Breast cancer Code(s): C50.919 - MALIGNANT NEOPLASM OF UNSP SITE OF UNSPECIFIED FEMALE BREAST SNOMED Code(s): 539447978 Comment: - status post lumpectomy on tamoxifan (4) Paroxysmal A-fib Code(s): I48.0 - PAROXYSMAL ATRIAL FIBRILLATION SNOMED Code(s): 169761366 Comment: - Continue xarelto and toprol XL - Rate controlled, stable (5) Hyperlipidemia Code(s): E78.5 - HYPERLIPIDEMIA, UNSPECIFIED SNOMED Code(s): 40922371 Comment: - Continue statin (6) Urinary tract infection due to Klebsiella species Code(s): N39.0 - URINARY TRACT INFECTION, SITE NOT SPECIFIED; B96.1 - KLEBSIELLA PNEUMONIAE THE CAUSE OF DISEASES CLASSD ELSWHR SNOMED Code(s): 319904653036643 Comment: - Ceftriaxone Q24h, susceptible per HANNA - May switch to Augmentin PO on discharge Status and Disposition: Remain inpatient for stabilization. Likely DC 08/17 on PO pred and atbx. Counseling and/or Coordination of Care Minutes: Coordinated with patient and Dr. Goodson.
--- NOTE | 2017-08-16 16:28 | DCNOTE ---
Subjective Date of Service: 08/16/17 Interval History: Patient seen and examined. States she's feeling better but RN says when she goes in the room her oxygen is off and her sats are in the low 80's. Does not appear to have a lot of insight into her condition. Denies chest pain, no acute SOB, no urinary complaints. Objective Active Medications: Acetaminophen (Tylenol Tab*) 650 mg PO Q4H PRN PRN Reason: FEVER/PAIN Albuterol (Ventolin 2.5 Mg/3 Ml Neb.Edwina*) 2.5 mg INH Q4H PRN PRN Reason: SOB/WHEEZING Albuterol/Ipratropium (Duoneb (Albuterol 2.5 Mg/Ipratropium 0.5 Mg)) 1 neb INH Q6H [facility] Last Admin: 08/16/17 13:53 Dose: 1 neb Amlodipine Besylate (Norvasc Tab*) 5 mg PO DAILY [facility] Last Admin: 08/16/17 09:15 Dose: 5 mg Atorvastatin Calcium (Lipitor*) 10 mg PO DAILY [facility] Last Admin: 08/16/17 09:15 Dose: 10 mg Docusate Sodium (Colace Cap*) 100 mg PO BID [facility] Last Admin: 08/16/17 09:15 Dose: 100 mg Guaifenesin (Mucinex*) 600 mg PO BID [facility] Last Admin: 08/16/17 09:15 Dose: 600 mg Azithromycin 500 mg/ Sodium (Chloride) 250 mls @ 250 mls/hr IVPB Q24H [facility] Last Admin: 08/16/17 03:07 Dose: 250 mls/hr Ceftriaxone Sodium 1 gm/ (Sodium Chloride) 50 mls @ 200 mls/hr IVPB Q24H [facility] Stop: 08/17/17 21:00 Metoprolol Succinate (Toprol Xl Tab*) 25 mg PO QPM [facility] Last Admin: 08/15/17 18:35 Dose: 25 mg Metoprolol Succinate (Toprol Xl Tab*) 50 mg PO QAM [facility] Last Admin: 08/16/17 09:15 Dose: 50 mg Mometasone Furoate/Formoterol Fumar (Dulera 200/5 Mdi*) 2 puff INH BID [facility] Last Admin: 08/16/17 07:58 Dose: 2 puff Prednisone (Deltasone Tab*) 50 mg PO DAILY [facility] Rivaroxaban (Xarelto (*)) 20 mg PO DAILY [facility] Last Admin: 08/16/17 09:16 Dose: 20 mg Tamoxifen Citrate (Nolvadex*) 20 mg PO DAILY [facility] Last Admin: 08/16/17 09:16 Dose: 20 mg Vital Signs - 8 hr 08/16/17 08/16/17 13:53 15:25 Temperature 97.7 F Pulse Rate 85 96 Respiratory 20 27 Rate Blood Pressure 118/76 (mmHg) O2 Sat by Pulse 98 98 Oximetry Oxygen Devices in Use Now: Nasal Cannula Result Diagrams: 08/15/17 07:13 08/15/17 07:13 Additional Lab and Data: Lab Results 08/14/17 08/14/17 08/14/17 Range/Units 01:46 01:46 01:46 WBC 10.1 (3.5-10.8) 10^3/ul RBC 3.85 L (4.0-5.4) 10^6/ul Hgb 10.5 L (12.0-16.0) g/dl Hct 34 L (35-47) % MCV 87 (80-97) fL MCH 27 (27-31) pg MCHC 31 (31-36) g/dl RDW 15 (10.5-15) % Plt Count 637 H (150-450) 10^3/ul MPV 6 L (7.4-10.4) um3 Neut % (Auto) 85.6 H (38-83) % Lymph % (Auto) 6.1 L (25-47) % [place] % (Auto) 5.9 (1-9) % Eos % (Auto) 1.7 (0-6) % Baso % (Auto) 0.7 (0-2) % Absolute Neuts (auto) 8.6 H (1.5-7.7) 10^3/ul Absolute Lymphs (auto) 0.6 L (1.0-4.8) 10^3/ul Absolute Monos (auto) 0.6 (0-0.8) 10^3/ul Absolute Eos (auto) 0.2 (0-0.6) 10^3/ul Absolute Basos (auto) 0.1 (0-0.2) 10^3/ul Absolute Nucleated RBC 0 10^3/ul Nucleated RBC % 0 INR (Anticoag Therapy) 1.32 H (0.77-1.02) APTT 38.5 H (26.0-36.3) seconds Patient Temperature ABG pH (7.35-7.45) ABG pCO2 (35-45) mmHg ABG pO2 (80-100) mmHg ABG HCO3 (19-31) mmol/L ABG O2 Saturation (95-98) % ABG Base Excess (-2.0-2.0) Respiration Rate O2 Delivery Device Ventilator Type Vent Mode FiO2 Inspiratory Time PEEP Pressure Support Pressure Control EPAP IPAP BiPAP Sodium (133-145) mmol/L Potassium (3.5-5.0) mmol/L Chloride (101-111) mmol/L Carbon Dioxide (22-32) mmol/L Anion Gap (2-11) mmol/L BUN (6-24) mg/dL Creatinine (0.51-0.95) mg/dL Est GFR ( Amer) (>60) Est GFR (Non-Af Amer) (>60) BUN/Creatinine Ratio (8-20) Glucose (70-100) mg/dL Lactic Acid (0.5-2.0) mmol/L Calcium (8.6-10.3) mg/dL Total Bilirubin (0.2-1.0) mg/dL AST (13-39) U/L ALT (7-52) U/L Alkaline Phosphatase (34-104) U/L Troponin I (<0.04) ng/mL B-Natriuretic Peptide 437 H ( - 100) pg/mL Total Protein (6.4-8.9) g/dL Albumin (3.2-5.2) g/dL Globulin (2-4) g/dL Albumin/Globulin Ratio (1-3) 08/14/17 08/14/17 08/14/17 Range/Units 01:46 01:46 02:35 WBC (3.5-10.8) 10^3/ul RBC (4.0-5.4) 10^6/ul Hgb (12.0-16.0) g/dl Hct (35-47) % MCV (80-97) fL MCH (27-31) pg MCHC (31-36) g/dl RDW (10.5-15) % Plt Count (150-450) 10^3/ul MPV (7.4-10.4) um3 Neut % (Auto) (38-83) % Lymph % (Auto) (25-47) % [place] % (Auto) (1-9) % Eos % (Auto) (0-6) % Baso % (Auto) (0-2) % Absolute Neuts (auto) (1.5-7.7) 10^3/ul Absolute Lymphs (auto) (1.0-4.8) 10^3/ul Absolute Monos (auto) (0-0.8) 10^3/ul Absolute Eos (auto) (0-0.6) 10^3/ul Absolute Basos (auto) (0-0.2) 10^3/ul Absolute Nucleated RBC 10^3/ul Nucleated RBC % INR (Anticoag Therapy) (0.77-1.02) APTT (26.0-36.3) seconds Patient Temperature Not Reportable ABG pH 7.38 (7.35-7.45) ABG pCO2 66 H (35-45) mmHg ABG pO2 62 L (80-100) mmHg ABG HCO3 33.9 H (19-31) mmol/L ABG O2 Saturation 93.2 L (95-98) % ABG Base Excess 11.7 H (-2.0-2.0) Respiration Rate Not Reportable O2 Delivery Device nasal cannila Ventilator Type Not Reportable Vent Mode Not Reportable FiO2 32 Inspiratory Time Not Reportable PEEP Not Reportable Pressure Support Not Reportable Pressure Control Not Reportable EPAP Not Reportable IPAP Not Reportable BiPAP Not Reportable Sodium 137 (133-145) mmol/L Potassium 3.8 (3.5-5.0) mmol/L Chloride 95 L (101-111) mmol/L Carbon Dioxide 38 H (22-32) mmol/L Anion Gap 4 (2-11) mmol/L BUN 22 (6-24) mg/dL Creatinine 0.96 H (0.51-0.95) mg/dL Est GFR ( Amer) 72.5 (>60) Est GFR (Non-Af Amer) 56.4 (>60) BUN/Creatinine Ratio 22.9 H (8-20) Glucose 133 H (70-100) mg/dL Lactic Acid 1.1 (0.5-2.0) mmol/L Calcium 9.1 (8.6-10.3) mg/dL Total Bilirubin 0.20 (0.2-1.0) mg/dL AST 11 L (13-39) U/L ALT 7 (7-52) U/L Alkaline Phosphatase 43 (34-104) U/L Troponin I 0.01 (<0.04) ng/mL B-Natriuretic Peptide ( - 100) pg/mL Total Protein 7.4 (6.4-8.9) g/dL Albumin 3.2 (3.2-5.2) g/dL Globulin 4.2 H (2-4) g/dL Albumin/Globulin Ratio 0.8 L (1-3) Microbiology and Other Data: Microbiology 08/14/17 05:34 Urine Culture - Preliminary Urine Klebsiella Pneumoniae Diagnostic Imaging: MRI brain with no acute pathology CXR with no infiltrate, shows emphysematous changes Assess/Plan/Problems-Billing Assessment: This is a 77 year old female patient with 4 year hx of COPD in an acute exacerbation requiring inpatient IV steroids, antibiotics and nebulizer treatment, also with positive culture for klebsiella in the urine. - Patient Problems (1) COPD exacerbation Code(s): J44.1 - CHRONIC OBSTRUCTIVE PULMONARY DISEASE W (ACUTE) EXACERBATION SNOMED Code(s): 444380615809301 Comment: - Continue azythromycin 500 daily - Change to duonebs Q6H with albuterol Q4PRN - Add mucinex 600 BID - Change to oral prednisone today - Discussed with Dr. Goodson (sees outpatient), who will see patient today - Continue O2 2LPM - Moderate improvement today, will hold off on pulmonology and call Dr. Goodson tomorrow. (2) Hypertension Code(s): I10 - ESSENTIAL (PRIMARY) HYPERTENSION SNOMED Code(s): 42633240 Comment: - Continue amlodipine and toprol, BP stable (3) Breast cancer Code(s): C50.919 - MALIGNANT NEOPLASM OF UNSP SITE OF UNSPECIFIED FEMALE BREAST SNOMED Code(s): 222370860 Comment: - status post lumpectomy on tamoxifan (4) Paroxysmal A-fib Code(s): I48.0 - PAROXYSMAL ATRIAL FIBRILLATION SNOMED Code(s): 275871418 Comment: - Continue xarelto and toprol XL - Rate controlled, stable (5) Hyperlipidemia Code(s): E78.5 - HYPERLIPIDEMIA, UNSPECIFIED SNOMED Code(s): 53828998 Comment: - Continue statin (6) Urinary tract infection due to Klebsiella species Code(s): N39.0 - URINARY TRACT INFECTION, SITE NOT SPECIFIED; B96.1 - KLEBSIELLA PNEUMONIAE THE [facility] Code(s): 276915850022163 Comment: - Ceftriaxone Q24h, susceptible per HANNA - May switch to Augmentin PO on discharge Status and Disposition: Remain inpatient for stabilization. Likely DC 08/17 if clear by pulmonology on PO pred, zithromax and augmentin.
[2017-08-16] MEDS: Metoprolol Succinate XL TAB* 25 MG PO SCH (17:36)
--- NOTE | 2017-08-16 21:57 | CONS ---
PULMONARY CONSULTATION REPORT: DATE OF CONSULT: 08/16/17 CONSULTATION REQUESTED BY: Manuela Art NP REASON FOR CONSULT: Evaluation of shortness of breath. HISTORY OF PRESENT ILLNESS: The patient is a 77-year-old female known to me from outpatient evaluation with history of COPD, continues to smoke, O2 dependent since recently, has new-onset AFib due to hypoxemia, was initiated on O2 supplementation, she was also started on chronic prednisone therapy, had multiple outpatient visits recently for breathing-related symptoms. She was also recently seen by Oncology, was noted to have been struggling with her breathing at that time and was scheduled for repeat scans given history of malignancy. CTA performed recently was personally reviewed by me with no evidence of pulmonary embolism, with evidence of scarring in left lingula, significant emphysematous changes. The patient also had lower extremity Dopplers, which showed no evidence of DVT. She had hip, pelvis, and femur x- ray that showed no fractures. The patient also had bone scan that revealed no uptake consistent with metastatic disease. CT brain done on current admission showed chronic small vessel ischemic changes with no acute intracranial pathology. The patient had sputum cultures sent, which grew MRSA. The patient is a poor historian. The patient was brought in by her son due to speech being somewhat gurgly. The patient was dehydrated at the time of evaluation. Of note , the patient has not been compliant with her portable oxygen at home, portable concentrator has been empty when she arrived in the emergency room. She was also noted to have been removing oxygen cannula during the hospitalization and her oxygen levels would drop to low 80s. She has needed 3 L O2 supplementation recently. She has been in AFib, however, with rate control at this time. The patient has been having issues with significant cough and sputum production. She was also noted to have klebsiella in urine and was started on antibiotics. She has a history of systolic heart failure with evidence of pulmonary hypertension, mild aortic stenosis, moderate mitral regurgitation, and moderate- to-severe tricuspid regurgitation. She is on anticoagulation given AFib. The patient has been smoking recently as per son. She has not been getting out of her house much. PAST MEDICAL HISTORY: 1. Atrial fibrillation, on Xarelto. 2. Significant COPD, on home O2 at 2 to 3 L. 3. Dyslipidemia. 4. Lumbar spinal scoliosis. 5. Peripheral arterial disease. 6. Hypertension. 7. Osteoporosis. 8. Invasive ductal carcinoma, status post lumpectomy and radiation. 9. History of hip replacement. 10. Systolic heart failure. 11. Pulmonary hypertension. 12. Recurrent UTIs. MEDICATIONS: 1. Bactrim. 2. Oxygen. 3. Xarelto. 4. Metoprolol. 5. Amlodipine. 6. Fortical. 7. Nebulizer. 8. Advair. 9. Lipitor. 10. Tamoxifen. 11. Albuterol. ALLERGIES: ASPIRIN. FAMILY HISTORY: Father with lung cancer, mother with CVA, brother with COPD. SOCIAL HISTORY: , lives alone in rental apartment, [id number] smoking history, quit in March 2017 and started smoking again. No drug abuse. Her son , Nael Breen, is her healthcare proxy. REVIEW OF SYSTEMS: All 14-systems reviewed, the patient is a poor historian and denied many of these complaints other than listed above. PHYSICAL EXAM: The patient is in bed, in no apparent distress. Vital Signs: Temperature 97.7, pulse is 96 beats per minute, respiratory rate 20 per minute, blood pressure 141/76, O2 sat 96% to 100% on 3 L. HEENT: Pupils equal, reactive to light. Mucous membranes moist. Lungs: Diminished air entry bilaterally. No wheezes on auscultation. Cardiovascular: Irregular, rate controlled. Abdomen: Soft, nontender, nondistended. Bowel sounds present. Extremities: Normal range of motion. Neuro: No focal deficits. DIAGNOSTIC STUDIES/LAB DATA: WBC 15.1, hemoglobin 10.2, hematocrit 33, platelet count 598. Blood gas analysis showed pH of 7.38, PCO2 of 66, PO2 of 62 , bicarb 33.9, O2 sat 93%. Sodium 139, potassium 4.0, chloride 99, bicarb 36, BUN 20, creatinine 0.7, lactic acid 1.1. Chest x-ray as described above in HPI, no evidence of pneumonia or acute process , evidence of hyperinflation. Recent sputum cultures, from 08/11/17, showed evidence of MRSA and klebsiella. Urine cultures grew klebsiella. IMPRESSION AND RECOMMENDATIONS: 77-year-old female, current smoker with severe chronic obstructive pulmonary disease with FEV1 of 35% predicted with progressively worsening overall condition with recurrent exacerbations and significant dyspnea and hypoxemia. The patient noncompliant with oxygen or inhalers. She still continues to smoke. She denies any complaints at the time of office visit or during inpatient evaluation. I also suspect a component of possible depression. Her son is concerned about her respiratory status. He feels that the patient should be seen more often in the office given her continued symptoms. I tried to explain him in detail that given the volume of practice it is difficult for me to see the patient very often. She has chronic severe chronic obstructive pulmonary disease and would have limitation with exertion and she probably would never get much better. I had a lengthy discussion with pts son trying to explain her custodial prognosis She has to remain compliant with her oxygen I would agree with current management. She will be discharged with tapering course of prednisone and antibiotic for another 7 days She will benefit from rehabilitation I also have discussed her case with Manuela Art, who is taking care of the patient while here in her hospital. [id number]/CPS #: [id number] MTDD
[2017-08-17] MEDS: Albuterol/Ipratropium NEB.SOL* Albuterol 2.5 MG/Ipratropium 0.5 MG 3 ML INH SCH ×2 (00:53→07:02)
[2017-08-17] MEDS: Azithromycin IV(*) 500 MG in NS 0.9% 250 ML* 250 ML IVPB SCH (04:02)
[2017-08-17] MEDS: Mometasone/Formoter 200/5 MDI INH SCH (07:02)
[2017-08-17] MEDS ORDERED: Albuterol/Ipratropium NEB.SOL* Albuterol 2.5 MG/Ipratropium 0.5 MG 3 ML INH PRN (07:11)
[2017-08-17] MEDS ORDERED: predniSONE TAB* 50 MG PO SCH (09:00)
[2017-08-17] MEDS: guaiFENesin ER TAB 600 MG PO SCH (09:41)
[2017-08-17] MEDS: Atorvastatin* 10 MG TAB PO SCH (09:41)
[2017-08-17] MEDS: amLODIPine TAB* 5 MG PO SCH (09:41)
[2017-08-17] MEDS: Docusate CAP* 100 MG PO SCH (09:41)
[2017-08-17] MEDS: Tamoxifen TAB* 10 MG PO SCH (09:41)
[2017-08-17] MEDS: Metoprolol Succinate XL TAB* 50 MG PO SCH (09:41)
[2017-08-17] MEDS: Rivaroxaban TAB(*) 20 MG TAB PO SCH (10:41)
[2017-08-17 12:44] VITALS: BP 142/78
--- NOTE | 2017-08-17 13:42 | PN ---
Progress Note - Progress Note Date of Service: 08/17/17 - Pulm f/u Note: Pt seen and examined at bedside. Pt reports feeling better. Is eager to go home. Intermittent cough, mild sputum. Walked in hallway without any problems Active Medications Generic Name Dose Route Start Last Admin Trade Name Freq PRN Reason Stop Dose Admin Acetaminophen 650 mg 08/14/17 03:51 Tylenol Tab* PO Q4H PRN FEVER/PAIN Albuterol 2.5 mg 08/14/17 18:09 Ventolin 2.5 Mg/3 Ml Neb.Edwina* INH Q4H PRN SOB/WHEEZING Albuterol/Ipratropium 1 neb 08/17/17 07:11 Duoneb (Albuterol 2.5 Mg/Ipratropium 0.5 Mg) INH Q6H PRN protocol Amlodipine Besylate 5 mg 08/14/17 09:00 08/17/17 09:41 Norvasc Tab* PO 5 mg DAILY [facility] Administration Atorvastatin Calcium 10 mg 08/14/17 09:00 08/17/17 09:41 Lipitor* PO 10 mg DAILY [facility] Administration Docusate Sodium 100 mg 08/14/17 09:00 08/17/17 09:41 Colace Cap* PO Not Given BID [facility] Guaifenesin 600 mg 08/14/17 21:00 08/17/17 09:41 Mucinex* PO 600 mg BID [facility] Administration Azithromycin 500 mg/ Sodium 250 mls @ 250 mls/hr 08/15/17 04:00 08/17/17 04: 02 Chloride IVPB 250 mls/hr Q24H [facility] Administration Ceftriaxone Sodium 1 gm/ 50 mls @ 200 mls/hr 08/16/17 20:00 08/16/17 20:37 Sodium Chloride IVPB 08/17/17 21:00 200 mls/hr Q24H [facility] Administration Metoprolol Succinate 25 mg 08/14/17 18:00 08/16/17 17:36 Toprol Xl Tab* PO 25 mg QPM [facility] Administration Metoprolol Succinate 50 mg 08/14/17 09:00 08/17/17 09:41 Toprol Xl Tab* PO 50 mg QAM [facility] Administration Mometasone Furoate/Formoterol Fumar 2 puff 08/14/17 09:00 08/17/17 07:02 Dulera 200/5 Mdi* INH 2 puff BID [facility] Administration Prednisone 50 mg 08/17/17 09:00 08/17/17 10:41 Deltasone Tab* PO 50 mg DAILY [facility] Administration Rivaroxaban 20 mg 08/14/17 09:00 08/17/17 10:41 Xarelto (*) PO 20 mg DAILY [facility] Administration Tamoxifen Citrate 20 mg 08/14/17 09:00 08/17/17 09:41 Nolvadex* PO 20 mg DAILY [facility] Administration Vital Signs Temp Pulse Resp BP Pulse Ox 98.9 F 93 16 142/78 96 08/17/17 11:29 08/17/17 11:29 08/17/17 11:29 08/17/17 11:29 08/17/17 11:29 HEENT: No Scleral Icterus, PERRLA, NL Teeth, Lips, Gums, Mucous Membranes Moist Neck: NL Appearance and Movements; NL JVP, Trachea Midline Respiratory: Symmetrical Chest Expansion and Respiratory Effort, diminished at bases with productive cough, no significant wheeze Cardiovascular: S1, S2+, No Murmurs; No JVD, irregular Abdominal: NL Sounds; No Tenderness; No Distention Extremities: No Edema, No Clubbing, Cyanosis Skin: No Rash or Ulcers Neurological: Alert and Oriented x 3, no focal defecits 08/15/17 08/15/17 07:13 07:13 WBC 15.1 H RBC 3.82 L Hgb 10.2 L Hct 33 L MCV 86 MCH 27 MCHC 31 RDW 15 Plt Count 598 H MPV 7 L Neut % (Auto) 96.2 H Lymph % (Auto) 2.6 L [place] % (Auto) 1.1 Eos % (Auto) 0 Baso % (Auto) 0.1 Absolute Neuts (auto) 14.6 H Absolute Lymphs (auto) 0.4 L Absolute Monos (auto) 0.2 Absolute Eos (auto) 0 Absolute Basos (auto) 0 Absolute Nucleated RBC 0.02 Nucleated RBC % 0.1 Sodium 139 Potassium 4.0 Chloride 99 L Carbon Dioxide 36 H Anion Gap 4 BUN 20 Creatinine 0.77 Est GFR ( Amer) 93.5 Est GFR (Non-Af Amer) 72.7 BUN/Creatinine Ratio 26.0 H Glucose 139 H Calcium 8.8 77 y o f with h/o severe COPD, recent A.fib, hypoxia a/w worsening SOB, gen fatigue treated for acute COPD excerbation and UTI Pt with Klebsiella UTI and COPD exacerbation. Sputum also positive for Klebsiella Pt improved with steroids, antibiotics Has not been very complaint with O2 Discussed in length today with pt with family at bedside, importance of compliance with O2 and to refrain from smoking Pts daughter to help pt She will need PT For d/c home today on prednisone taper and abx for 7 days
--- NOTE | 2017-08-18 04:56 | DS ---
CC: Dr. Denis; Dr. Goodson; Dr. Patel * DISCHARGE SUMMARY: DATE OF ADMISSION: 08/14/17 DATE OF DISCHARGE: 08/17/17 PRIMARY CARE PROVIDER: Dr. Denis. DISCHARGE DIAGNOSES: 1. Chronic obstructive pulmonary disease exacerbation. 2. Klebsiella pneumoniae urinary tract infection. 3. Dehydration. SECONDARY DIAGNOSES: 1. History of atrial fibrillation, on Xarelto. 2. History of chronic hypoxemia due to chronic obstructive pulmonary disease on oxygen at 3 L. 3. Dyslipidemia. 4. Lumbar spine scoliosis 5. Peripheral arterial occlusive disease. 6. History of hypertension. 7. Osteoporosis. 8. History of left breast cancer, status post lumpectomy and radiation. 9. History of moderate mitral regurgitation and [id number] tricuspid regurgitation. Medications at discharge include: 1. Slow prednisone taper. The patient was instructed to take four 10 mg tablets, which is 40 mg daily for 5 days and taper down to 3 tablets daily for 5 days, then 2 tablets daily for 5 days, then 1 tablet daily for 5 days, then stop. 2. Cefdinir 300 mg p.o. b.i.d. for a total of 4 days to complete a 7-day treatment. 3. Azithromycin 250 mg p.o. daily for 3 days to continue to complete 5-day treatment. 4. The patient is instructed to do DuoNeb nebulizer as needed. 5. Albuterol inhaler on a p.r.n. basis. 6. Amlodipine 5 mg daily. 7. Lipitor 10 mg daily. 8. Calcitonin nasal spray 1 spray each nostril daily. 9. Advair Diskus 1 puff b.i.d. 10. Atrovent nasal p.r.n. 11. Metoprolol succinate 25 mg q.p.m. and 50 mg q.a.m. 12. Multivitamin 1 tablet daily. 13. Xarelto 20 mg daily. 14. Spiriva 1 inhalation daily. 15. Tamoxifen 20 mg daily. DIAGNOSTIC STUDIES/LAB DATA: The patient's laboratory data obtained on showed white blood cell count of 15.1, hemoglobin of 10.2, hematocrit of 33, and platelets of 798. Sodium of 139, potassium of 4.0, chloride 99, carbon dioxide 36, BUN 20, creatinine 0.7. Urine culture was positive for Klebsiella pneumoniae of approximately 25,000 to 50,000 colonies. HOSPITALIZATION COURSE: Karyn Breen is a 77-year-old female who presented to the hospital in the middle of the night on 08/14/17 complaining of shortness of breath and slurred speech was mostly due to dehydration. The patient was admitted to the hospital, treated with intravenous steroids and antibiotics for COPD exacerbation. She was also placed on intravenous fluids for dehydration. She was noted to have heart rate and blood pressure controlled with Toprol-XL and Norvasc. Lisinopril and labetalol were hold at admission and not restarted. Her heart rate and her blood pressure were noted to be well controlled at discharge. The patient was seen by Dr. Goodson from Pulmonary, who also was seeing patient as outpatient. Dr. Goodson recommended to finish treatment of antibiotics. The patient also was placed on prolonged taper for steroids at discharge due to severe COPD. At discharge, the patient was recommended strongly not to smoke especially when she is in need of oxygen continuously at 3 L. She was set up with visiting nurse association. Her daughter is actually on her way into [place]. She is flying to take care of patient for the next week. PHYSICAL EXAMINATION: At the time of discharge, blood pressure of 142/78, heart rate of 93 and irregularly irregular, respiratory rate 16, oxygen saturation 96% on 3 L of oxygen nasal cannula, temperature 98.9. General: The patient is a pleasant 77-year-old female, who is not in acute distress. Alert, awake, and oriented x3. HEENT: Head: Atraumatic, normocephalic. Eyes: Pupils are equal, reactive to light and accommodation. Oropharynx is clear. Mucosa moist. Neck: Supple. No JVD. No bruits bilaterally. Cardiovascular: Irregularly irregular rhythm. No murmur. Respiratory: Distant breath sounds bilaterally. No significant wheezes. Abdomen: Soft, nontender. Bowel sounds are present in all 4 quadrants. Extremities: There is no edema. Pulses +2 bilaterally. No clubbing or cyanosis. On neuro evaluation, speech is clear. Cranial nerves II through XII grossly intact. Motor strength is 5/5 bilaterally. Please note that this is a short summary of the patient's hospitalization. Please refer to further medical records for details. TIME SPENT: Approximately 45 minutes were spent on preparation of patient's discharge. [id number]/[facility] #: [id number] [facility]
== END 2017-08-17 15:05 | disposition home health service (06) | DRG 191 ==
LOC: ED 01:02 → MEDTELE 03:51 → OBSVTOIN 08-15 15:00 → SSU 08-16 23:15
PROVIDERS: ADMIT Internal Medicine; ATTEND Internal Medicine
DX: J44.1 Chronic obstructive pulmonary disease with (acute) exacerbation (principal); N39.0 Urinary tract infection, site not specified; I08.3 Combined rheumatic disorders of mitral, aortic and tricuspid valves; I27.20 Pulmonary hypertension, unspecified; M41.86 Other forms of scoliosis, lumbar region; I48.0 Paroxysmal atrial fibrillation; Z99.81 Dependence on supplemental oxygen; E86.0 Dehydration; I11.0 Hypertensive heart disease with heart failure; I50.22 Chronic systolic (congestive) heart failure; B96.1 Klebsiella pneumoniae [K. pneumoniae] as the cause of diseases classified elsewhere; C50.912 Malignant neoplasm of unspecified site of left female breast; I48.92 Unspecified atrial flutter; E78.5 Hyperlipidemia, unspecified; Z96.643 Presence of artificial hip joint, bilateral; I73.9 Peripheral vascular disease, unspecified; M81.0 Age-related osteoporosis without current pathological fracture; F17.210 Nicotine dependence, cigarettes, uncomplicated; R09.02 Hypoxemia; Z88.8 Allergy status to other drugs, medicaments and biological substances; Z82.3 Family history of stroke; Z80.1 Family history of malignant neoplasm of trachea, bronchus and lung; Z82.5 Family history of asthma and other chronic lower respiratory diseases; Z91.19 Patient's noncompliance with other medical treatment and regimen; Z79.01 Long term (current) use of anticoagulants
CPT/HCPCS: 36415; 36600; 70450; 71010; 80048; 80053; 81003; 81015; 82803; 83605; 83880; 84484; 85025; 85610; 85730; 87040; 87077; 87086; 87186; 87205; 93005; 94640; 94760; A9270-GY; G0378; G8978-GP-CL; G8979-GP-CK; J0456; J0696; J2920; J2930; J7512

== ENCOUNTER 2018-07-25 10:33 | Day surgery (SDC) | payer MEDICARE ==
[~2018-07-25 10:33] MED LIST: Buffered Lidocaine 0.9% SYRIN* 5 ML/SYR SYRINGE INTRADERM ONE
[2018-07-25] MEDS ORDERED: Tropicamide 1% OPTH.SOL* BTL ONE ×2 (12:12→12:14)
[2018-07-25] MEDS ORDERED: Phenylephrine 2.5% OPTH.SOL* 2 ML BTL ONE ×2 (12:12→12:14)
[2018-07-25] MEDS ORDERED: Cyclopentolate 1% OPTH.SOL* 2 ML BTL ONE ×2 (12:12→12:14)
[2018-07-25] MEDS ORDERED: Neomycin/Polymy/Dex OPHTH.OIN* 3.5 GM ONE ×2 (12:12→12:14)
[2018-07-25] MEDS ORDERED: Ketorolac 0.5% OPHTH (NF) 0.5 % 5 ML BTL ONE ×2 (12:12→12:14)
[2018-07-25] MEDS ORDERED: Lidocaine 1%* 5 ML VIAL ONE ×2 (12:12→12:14)
[2018-07-25] MEDS ORDERED: Tetracaine 0.5% OPTH.SOL 4 ML* 1 DROP BTL ONE ×2 (12:12→12:14)
[2018-07-25] MEDS ORDERED: Propofol* 10 MG/ML 20 ML BTL ONE (12:45)
[2018-07-25] MEDS ORDERED: Lidocaine 2% PF * 5 ML VIAL ONE (12:45)
[2018-07-25 13:23] VITALS: BP 140/76
[2018-07-25] MEDS ORDERED: Phenylephr/Ketorolac 1%/0.3% OPH DROP BTL ONE (14:19)
--- NOTE | 2018-07-25 16:27 | OP ---
DATE OF OPERATION/DATE OF DICTATION: 07/25/2018 - [facility] DATE OF : 1940. SURGEON: Dr. Manolo Soot. SMALL ARMS ARTILLERY REPAIRER: None. ANESTHESIA: Topical with intravenous sedation. PRE-OP DIAGNOSIS: Cataract, right eye. POST-OP DIAGNOSIS: Cataract, right eye. OPERATIVE PROCEDURE: Phacoemulsification and cataract extraction with posterior chamber intraocular lens implant, right eye. COMPLICATIONS: None. BLOOD LOSS: None. DESCRIPTION OF PROCEDURE: The patient was brought to the operating room and received a small amount of intravenous sedation. A drop of Tetracaine was placed in her right eye. She was prepped and draped in the usual sterile fashion for ophthalmic surgery and attention was directed to the right eye where a speculum was placed. A paracentesis was created at the 11 o'clock position and 0.1 cc of 1 percent preservative-free Lidocaine was injected into the anterior chamber followed by DisCoVisc. The eye was digitally stabilized while a 2.75 mm keratome was used to create a triplanar clear corneal incision at the 9 o'clock position. A continuous curvilinear capsulorrhexis was created with a cystotome and Utrata forceps. BSS on a cannula was used to hydrodissect the lens from the capsule. Phacoemulsification was performed in a divide-and- conquer technique to create four fragments which were removed. Residual cortical material was removed with irrigation and aspiration. DisCoVisc was used to inflate the capsular bag and an AUOOTO 25.0 diopter lens was folded and inserted into the capsular bag. DisCoVisc was removed using irrigation and aspiration. BSS on a cannula was used to hydrate the corneal stroma and seal the wound. At the end of the case the pupil was round and the lens was centered. The eye was of normal pressure and the wound was water tight. The speculum was removed and topical Maxitrol ointment was placed on the surface of the eye. The eye was closed, patched and shielded and the patient was sent to the recovery room in stable condition with post operative instructions and follow-up appointment given. [id number]/[facility] #: [id number] MTDD
== END 2018-07-25 13:35 | disposition home or self-care (01) ==
LOC: OREAST 10:33
PROVIDERS: ATTEND Ophthalmology
DX: H25.11 Age-related nuclear cataract, right eye (principal); I10 Essential (primary) hypertension; J44.9 Chronic obstructive pulmonary disease, unspecified; Z85.3 Personal history of malignant neoplasm of breast; K21.9 Gastro-esophageal reflux disease without esophagitis; I48.91 Unspecified atrial fibrillation; I35.0 Nonrheumatic aortic (valve) stenosis; Z79.01 Long term (current) use of anticoagulants
CPT/HCPCS: A9270-GY; C9447; J2704; V2632

== ENCOUNTER 2018-08-01 08:17 | Day surgery (SDC) | payer MEDICARE ==
[~2018-08-01 08:17] MED LIST changes: +Acetaminophen TAB* 325 MG PO PRN; +Famotidine IV* 10 MG/ML 2 ML (20 mg) IV ONE
[2018-08-01] MEDS ORDERED: Midazolam* 1 MG/ML 5 ML VIAL (5 MG) ONE (09:38)
[2018-08-01 10:40] VITALS: BP 112/70
[2018-08-01] MEDS ORDERED: Neomycin/Polymy/Dex OPHTH.OIN* 3.5 GM ONE (15:24)
[2018-08-01] MEDS ORDERED: Tropicamide 1% OPTH.SOL* BTL ONE (15:24)
[2018-08-01] MEDS ORDERED: Phenylephrine 2.5% OPTH.SOL* 2 ML BTL ONE (15:24)
[2018-08-01] MEDS ORDERED: Ketorolac 0.5% OPHTH (NF) 0.5 % 5 ML BTL ONE (15:24)
[2018-08-01] MEDS ORDERED: Tetracaine 0.5% OPTH.SOL 4 ML* 1 DROP BTL ONE (15:24)
[2018-08-01] MEDS ORDERED: Cyclopentolate 1% OPTH.SOL* 2 ML BTL ONE (15:24)
[2018-08-01] MEDS ORDERED: Lidocaine 1%* 5 ML VIAL ONE (15:24)
--- NOTE | 2018-08-02 04:31 | OP ---
DATE OF OPERATION: 08/01/18 [facility] DATE OF : 40 SURGEON: Dr. Manolo Soto. LINE REPAIRER TOWER: None. ANESTHESIA: Topical with intravenous sedation. PRE-OP DIAGNOSIS: Cataract, left eye. POST-OP DIAGNOSIS: Cataract, left eye. OPERATIVE PROCEDURE: Phacoemulsification and cataract extraction with posterior chamber intraocular lens implant, left eye. COMPLICATIONS: None. BLOOD LOSS: None. DESCRIPTION OF PROCEDURE: The patient was brought to the operating room and received a small amount of intravenous sedation. A drop of Tetracaine was placed in her left eye. She was prepped and draped in the usual sterile fashion for ophthalmic surgery and attention was directed to the left eye where a speculum was placed. A paracentesis was created at the 5 o'clock position and 0.1 cc of 1 percent preservative-free Lidocaine was injected into the anterior chamber followed by DisCoVisc. The eye was digitally stabilized while a 2.75 mm keratome was used to create a triplanar clear corneal incision at the 3 o'clock position. A continuous curvilinear capsulorrhexis was created with a cystotome and Utrata forceps. BSS on a cannula was used to hydrodissect the lens from the capsule. Phacoemulsification was performed in a divide-and- conquer technique to create four fragments which were removed. Residual cortical material was removed with irrigation and aspiration. DisCoVisc was used to inflate the capsular bag and an AU00T0 25.0 diopter lens was folded and inserted into the capsular bag. DisCoVisc was removed using irrigation and aspiration. BSS on a cannula was used to hydrate the corneal stroma and seal the wound. At the end of the case the pupil was round and the lens was centered. The eye was of normal pressure and the wound was water tight. The speculum was removed and topical Maxitrol ointment was placed on the surface of the eye. The eye was closed, patched and shielded and the patient was sent to the recovery room in stable condition with post operative instructions and follow-up appointment given. [id number] #: [id number]
== END 2018-08-01 10:54 | disposition home or self-care (01) ==
LOC: OREAST 08:17
PROVIDERS: ATTEND Ophthalmology
DX: H25.12 Age-related nuclear cataract, left eye (principal); Z87.891 Personal history of nicotine dependence; I48.0 Paroxysmal atrial fibrillation; I10 Essential (primary) hypertension; I35.0 Nonrheumatic aortic (valve) stenosis; J44.9 Chronic obstructive pulmonary disease, unspecified; Z85.3 Personal history of malignant neoplasm of breast; Z79.01 Long term (current) use of anticoagulants
CPT/HCPCS: A9270-GY; J2250; V2632

== ENCOUNTER 2022-05-06 09:52 | Inpatient (IN) ==
[2022-05-06 13:02] LABS: Hematocrit 40 % (35-47); Hemoglobin 12.6 g/dL (12.0-16.0); Mean Corpuscular HGB Conc 32 g/dL (31-36); Mean Corpuscular Hemoglobin 27 pg (27-31); Mean Corpuscular Volume 86 fL (80-97); Mean Platelet Volume 7.1 fL (7.4-10.4); Platelet Count 391 10^3/uL (150-450); Red Blood Count 4.62 10^6 /uL (3.70-4.87); Red Cell Distribution Width 16 % (10-15); White Blood Count 12.6 10^3/uL (3.5-10.8)
[2022-05-06 13:11] LABS: ABS Lymphocytes 0.9 10^3/ul (1.0-4.8); ABS Monocytes 0.9 10^3/ul (0-0.8); ABS Neutrophils 10.7 10^3/ul (1.5-7.7); Eosinophil % 0.2 %; Lymphocyte % 7.4 %; Nucleated Red Blood Cells % 0.1
[2022-05-06] MEDS ORDERED: Lactated Ringers 1000 ml BAG 1,000 ML IV ONE (13:31)
[2022-05-06] MEDS ORDERED: cefTRIAXone 2 gm/50 mL D5W 2 GM/50 ML BAG IV ONE (13:32)
[2022-05-06 13:39] LABS: Albumin 4.1 g/dL (3.2-5.2); Albumin/Globulin Ratio 1.1 (1-3); C Reactive Protein 157.4 mg/L (<8.01); Calcium 9.6 mg/dL (8.6-10.3); Globulin 3.8 g/dL (2-4); Total Bilirubin 0.8 mg/dL (0.2-1.0); Total Protein 7.9 g/dL (6.4-8.9); eGFR CKD-EPI 60.6 (>60)
[2022-05-06] MEDS ORDERED: Vancomycin 1,000 MG in NS 0.9% 250 ml 250 ML IVPB ONE (14:00)
[2022-05-06] MEDS ORDERED: Albuterol/Ipratropium NEB.SOL (2.5/0.5 MG) 3 ML NEB.SOLN INH PRN (15:33)
[2022-05-06] MEDS: Enoxaparin 30 MG/0.3 ML SYR SUBCUT SCH (22:20)
[2022-05-07 05:43] LABS: ABS Lymphocytes 0.8 10^3/ul (1.0-4.8); ABS Monocytes 1.5 10^3/ul (0-0.8); ABS Neutrophils 9.8 10^3/ul (1.5-7.7); Hematocrit 35 % (35-47); Hemoglobin 11.5 g/dL (12.0-16.0); Lymphocyte % 6.8 %; Mean Corpuscular HGB Conc 33 g/dL (31-36); Mean Corpuscular Hemoglobin 28 pg (27-31); Mean Corpuscular Volume 85 fL (80-97); Mean Platelet Volume 6.6 fL (7.4-10.4); Platelet Count 361 10^3/uL (150-450); Red Blood Count 4.16 10^6 /uL (3.70-4.87); Red Cell Distribution Width 16 % (10-15); White Blood Count 12.1 10^3/uL (3.5-10.8)
[2022-05-07 06:25] LABS: Calcium 9.1 mg/dL (8.6-10.3); Magnesium 1.9 mg/dL (1.9-2.7); Potassium 3.7 mmol/L (3.5-5.0); eGFR CKD-EPI 68.4 (>60)
[2022-05-07] MEDS: Vancomycin 500 MG in NS 0.9% 250 ML IVPB SCH ×2 (08:01→18:11)
[2022-05-07] MEDS ORDERED: Vancomycin per Pharmacy 1 EA NOTE FOLLOW UP SCH (09:00)
[2022-05-07] MEDS: Aspirin EC 81 mg TAB.EC (enteric coated) PO SCH ×2 (09:28→09:51)
[2022-05-07] MEDS: cefTRIAXone 2 gm/50 mL D5W 2 GM/50 ML BAG IV SCH (09:44)
[2022-05-07] MEDS: Enoxaparin 30 MG/0.3 ML SYR SUBCUT SCH (17:34)
[2022-05-08] MEDS ORDERED: Vancomycin Trough Check NOTE FOLLOW UP ONE (06:00)
[2022-05-08 06:02] LABS: ABS Monocytes 1.3 10^3/ul (0-0.8); ABS Neutrophils 9.6 10^3/ul (1.5-7.7); Eosinophil % 0.1 %; Hematocrit 36 % (35-47); Hemoglobin 11.3 g/dL (12.0-16.0); Lymphocyte % 8.2 %; Mean Corpuscular HGB Conc 31 g/dL (31-36); Mean Corpuscular Hemoglobin 27 pg (27-31); Mean Corpuscular Volume 85 fL (80-97); Mean Platelet Volume 6.6 fL (7.4-10.4); Nucleated Red Blood Cells % 0.1; Platelet Count 336 10^3/uL (150-450); Red Blood Count 4.23 10^6 /uL (3.70-4.87); Red Cell Distribution Width 16 % (10-15); White Blood Count 11.9 10^3/uL (3.5-10.8)
[2022-05-08 06:55] LABS: Calcium 9.1 mg/dL (8.6-10.3); Potassium 3.8 mmol/L (3.5-5.0); Vancomycin Trough 3.6 mcg/mL; eGFR CKD-EPI 74.6 (>60)
[2022-05-08] MEDS: Vancomycin 500 MG in NS 0.9% 250 ML IVPB SCH (07:39)
[2022-05-08] MEDS ORDERED: Lorazepam PYXIS KEY PRN (09:12)
[2022-05-08] MEDS ORDERED: LORazepam 2 mg VIAL 1 ml IV PUSH ONE (09:12)
[2022-05-08] MEDS: cefTRIAXone 2 gm/50 mL D5W 2 GM/50 ML BAG IV SCH (10:13)
[2022-05-08] MEDS: Aspirin EC 81 mg TAB.EC (enteric coated) PO SCH (10:16)
[2022-05-08] MEDS ORDERED: Gadoteridol (CONTRAST) 279.3 MG/ML 10 ML IV ONE (14:20)
[2022-05-08] MEDS: Vancomycin 1000 MG in NS 0.9% 250 ML IVPB SCH (16:17)
[2022-05-08] MEDS: Enoxaparin 30 MG/0.3 ML SYR SUBCUT SCH (16:34)
[2022-05-08] MEDS ORDERED: NS 0.9% 500 ml BAG 500 ML IV ONE (20:55)
[2022-05-09] MEDS: Vancomycin 1000 MG in NS 0.9% 250 ML IVPB SCH ×2 (02:06→15:37)
[2022-05-09 06:10] LABS: Hematocrit 37 % (35-47); Hemoglobin 11.7 g/dL (12.0-16.0); Mean Corpuscular HGB Conc 31 g/dL (31-36); Mean Corpuscular Hemoglobin 27 pg (27-31); Mean Corpuscular Volume 85 fL (80-97); Platelet Count 402 10^3/uL (150-450); Red Blood Count 4.35 10^6 /uL (3.70-4.87); Red Cell Distribution Width 16 % (10-15); White Blood Count 13.7 10^3/uL (3.5-10.8)
[2022-05-09 06:15] LABS: ABS Lymphocytes 0.9 10^3/ul (1.0-4.8); ABS Monocytes 1.6 10^3/ul (0-0.8); ABS Neutrophils 11.2 10^3/ul (1.5-7.7); Eosinophil % 0.2 %; Lymphocyte % 6.5 %
[2022-05-09 06:40] LABS: Calcium 8.5 mg/dL (8.6-10.3); Potassium 3.7 mmol/L (3.5-5.0)
[2022-05-09] MEDS: cefTRIAXone 2 gm/50 mL D5W 2 GM/50 ML BAG IV SCH (09:09)
[2022-05-09] MEDS: Aspirin EC 81 mg TAB.EC (enteric coated) PO SCH (09:11)
[2022-05-09] MEDS: Nicotine PATCH 14 MG/24 HR PATCH TRANSDERM SCH (14:40)
[2022-05-09] MEDS: Enoxaparin 30 MG/0.3 ML SYR SUBCUT SCH (14:40)
[2022-05-10] MEDS: Vancomycin 1000 MG in NS 0.9% 250 ML IVPB SCH ×2 (02:03→14:49)
[2022-05-10 06:12] LABS: ABS Lymphocytes 1.2 10^3/ul (1.0-4.8); ABS Monocytes 1.5 10^3/ul (0-0.8); ABS Neutrophils 12.5 10^3/ul (1.5-7.7); Eosinophil % 0.1 %; Hematocrit 38 % (35-47); Hemoglobin 12.2 g/dL (12.0-16.0); Lymphocyte % 7.7 %; Mean Corpuscular HGB Conc 32 g/dL (31-36); Mean Corpuscular Hemoglobin 27 pg (27-31); Mean Corpuscular Volume 85 fL (80-97); Mean Platelet Volume 7.1 fL (7.4-10.4); Platelet Count 459 10^3/uL (150-450); Red Blood Count 4.48 10^6 /uL (3.70-4.87); Red Cell Distribution Width 16 % (10-15); White Blood Count 15.2 10^3/uL (3.5-10.8)
[2022-05-10 07:09] LABS: Potassium 3.5 mmol/L (3.5-5.0); eGFR CKD-EPI 68.4 (>60)
[2022-05-10 08:32] LABS: C Reactive Protein 284.48 mg/L (<8.01)
[2022-05-10] MEDS: Nicotine PATCH 14 MG/24 HR PATCH TRANSDERM SCH (10:19)
[2022-05-10] MEDS: Aspirin EC 81 mg TAB.EC (enteric coated) PO SCH (10:19)
[2022-05-10] MEDS: cefTRIAXone 2 gm/50 mL D5W 2 GM/50 ML BAG IV SCH (10:19)
[2022-05-10] MEDS ORDERED: NS 0.9% 1000 ml BAG 400 ML IV ONE ×3 (11:45→13:57)
[2022-05-10] MEDS ORDERED: Vancomycin Trough Check NOTE FOLLOW UP ONE (13:30)
[2022-05-10] MEDS: Enoxaparin 40 MG/0.4 ML SYR SUBCUT SCH (14:49)
[2022-05-10] MEDS ORDERED: NS 0.9% 500 ml BAG 500 ML IV ONE (15:33)
[2022-05-10] MEDS ORDERED: Lactated Ringers 1000 ml BAG 1,000 ML IV ONE (17:52)
[2022-05-10] MEDS ORDERED: Lactated Ringers 1000 ml BAG 1,000 ML IV SCH (20:00)
[2022-05-11 01:40] LABS: Urine Appearance Cloudy; Urine Bilirubin Negative (Negative); Urine Blood 1+ (Small) (Negative); Urine Color Yellow; Urine Glucose Negative (Negative); Urine Ketones Negative (Negative); Urine Nitrite Negative (Negative); Urine Protein 2+ (100 mg/dL) (Negative); Urine Specific Gravity 1.025 (1.005-1.030); Urine Urobilinogen 0.2 (Negative) (Negative); Urine pH 5.5 (5.0-9.0)
[2022-05-11 01:46] LABS: Urine Bacteria 3+ (Absent); Urine Red Blood Cell 3+(>10/hpf) (Absent); Urine Squamous Epithelial Cell Present (Absent); Urine White Blood Cell 3+(>20/hpf) (Absent)
[2022-05-11] MEDS ORDERED: Lactated Ringers 1000 ml BAG 1,000 ML IV ONE ×2 (04:00→08:00)
[2022-05-11] MEDS ORDERED: Vancomycin Random Level NOTE FOLLOW UP ONE (06:00)
[2022-05-11 06:01] LABS: ABS Neutrophils 9.9 10^3/ul (1.5-7.7); Hematocrit 33 % (35-47); Hemoglobin 11.2 g/dL (12.0-16.0); Lymphocyte % 8.4 %; Mean Corpuscular HGB Conc 34 g/dL (31-36); Mean Corpuscular Hemoglobin 29 pg (27-31); Mean Corpuscular Volume 85 fL (80-97); Mean Platelet Volume 7.4 fL (7.4-10.4); Platelet Count 417 10^3/uL (150-450); Red Blood Count 3.83 10^6 /uL (3.70-4.87); Red Cell Distribution Width 16 % (10-15); White Blood Count 11.8 10^3/uL (3.5-10.8)
[2022-05-11 06:22] LABS: C Reactive Protein 183.73 mg/L (<8.01); Vancomycin Random 22.7 mcg/mL; eGFR CKD-EPI 67.4 (>60)
[2022-05-11] MEDS ORDERED: Metoprolol Tartrate 5 mg VIAL 5 ml VIAL (1 mg/ml) IV SCH (08:00)
[2022-05-11] MEDS: cefTRIAXone 2 gm/50 mL D5W 2 GM/50 ML BAG IV SCH (10:12)
[2022-05-11] MEDS: Nicotine PATCH 14 MG/24 HR PATCH TRANSDERM SCH (10:13)
[2022-05-11] MEDS: Aspirin EC 81 mg TAB.EC (enteric coated) PO SCH (10:13)
[2022-05-11] MEDS: Enoxaparin 40 MG/0.4 ML SYR SUBCUT SCH (13:42)
[2022-05-12 05:31] LABS: ABS Lymphocytes 0.9 10^3/ul (1.0-4.8); ABS Monocytes 0.8 10^3/ul (0-0.8); ABS Neutrophils 8.3 10^3/ul (1.5-7.7); Eosinophil % 0.1 %; Hematocrit 32 % (35-47); Hemoglobin 10.4 g/dL (12.0-16.0); Mean Corpuscular HGB Conc 32 g/dL (31-36); Mean Corpuscular Hemoglobin 28 pg (27-31); Mean Corpuscular Volume 85 fL (80-97); Mean Platelet Volume 7.1 fL (7.4-10.4); Platelet Count 376 10^3/uL (150-450); Red Blood Count 3.79 10^6 /uL (3.70-4.87); Red Cell Distribution Width 16 % (10-15); White Blood Count 10.1 10^3/uL (3.5-10.8)
[2022-05-12 06:13] LABS: Calcium 8.6 mg/dL (8.6-10.3); Potassium 3.4 mmol/L (3.5-5.0); eGFR CKD-EPI 74.6 (>60)
[2022-05-12] MEDS ORDERED: Potassium Chlor 20 meq TAB.ER PO ONE (08:28)
[2022-05-12 08:56] VITALS: BP 134/93
[2022-05-12] MEDS: Aspirin EC 81 mg TAB.EC (enteric coated) PO SCH (09:21)
[2022-05-12] MEDS: Nicotine PATCH 14 MG/24 HR PATCH TRANSDERM SCH (09:21)
[2022-05-12 18:21] LABS: Cyclic Citrullinated Peptide <15.6 U
== END 2022-05-12 11:10 | disposition home health service (06) | DRG 548 ==
LOC: ED 09:52 → EDHOLD 09:52 → SUATTDRO 15:17 → SSU 17:56 → SUATTDRO 05-09 11:30 → MEDTELE 05-09 12:02
PROVIDERS: ADMIT Internal Medicine; ATTEND Internal Medicine